=== PATIENT | male | born 1945 | race Caucasian/White ===

== ENCOUNTER 2021-07-09 03:33 | Inpatient (IN) ==
[2021-07-09 03:49] VITALS: BMI 25.0
[2021-07-09] MEDS ORDERED: CARDIZEM INJ 50 MG VIAL IVP ONE ×2 (04:03→04:48)
[2021-07-09] MEDS ORDERED: CARDIZEM INJ 50 MG VIAL ONE (04:05)
[2021-07-09 04:19] LABS: HEMOGLOBIN 11.8 g/dL (13.5-18.0); WHITE BLOOD COUNT 6.7 X10^3/uL (3.6-10.0)
--- NOTE | 2021-07-09 04:19 | DR.ARRHYTH ---
HPI Time Seen Time Seen by Provider: 07/09/21 04:15 PCP Primary Care Physician: Pool Complaint Chief Complaint Doctor Comments: 75 y/o male presents with palpitations x the past few weeks. Was diagnosed with atrial fibrillation, seen at other ERs [facility] times. Left [facility], they had give him IV lasix and placed on a drip. Pt was not satisfied with their care (lack of bathroom, amenities). Came here instead. Has been having intermittent chest pain - mostly dull, sharp at times, substernal region, does not radiate. Having palpitations more than chest pain, feels that heart is coming out of his back. + exertional dyspnea. Denies diaphoresis, N/V. + h/o heart disease, s/p CABD, vascular stents in the past, still smokes. Is on plavix. Chief Complaint:: Feels like his heart is racing x "a few weeks". He just walked out of [facility] without being released. COVID-19 Coronavirus risk:travel/contact w/high risk person: No Has patient experienced Coronavirus symptoms: No Reviewed Nursing Notes Reviewed: Yes Source History Provided: Patient Mode of Arrival Mode of Arrival: Ambulatory Timing Onset of Chief Complaint: 06/26/21 PMH PMH Past Medical History: Yes Past Medical History: Coronary Artery Disease, Dyslipidemia and Hypertension Past Medical History Comment: Hepatitis C Past Surgical History: Yes Surgical History: CABG/Valve Surgery Past Surgical History Comment: Pacemaker, Open heart x 2, Stents to legs Family History History of Family Medical Conditions: No Social History Does patient currently use any type of tobacco product: Yes Type of Tobacco Use: Cigarettes Packs per day or dips/chews per day: 1/2 PPD Alcohol Use: None Do you use any recreational Drugs:: No Lives With: Alone Lives Where: Home Travel Risk Coronavirus risk:travel/contact w/high risk person: No Has patient experienced Coronavirus symptoms: No Infectious screening Have you traveled outside the country in the last 6 months?: No Isolation: Standard ROS Review of Systems Constitutional: Weakness Eyes: No Symptoms Reported ENTM: No Symptoms Reported Respiratoy: No Symptoms Reported Cardiovascular: Chest Pain, Edema and Palpitations Gastrointestinal/Abdominal: No Symptoms Reported Genitourinary: No Symptoms Reported Neurological: No Symptoms Reported Musculoskeletal: No Symptoms Reported Integumentary: No Symptoms Reported Hematologic/Lymphatic: No Symptoms Reported Psychiatric: No Symptoms Reported All Other Systems: Reviewed and Negative PE Vitals Vital Signs: Temp Pulse Resp BP Pulse Ox 07/09/21 06:30 108 H 15 113/69 98 07/09/21 06:15 132 H 26 H 07/09/21 06:00 107 H 16 110/74 100 07/09/21 05:45 112 H 17 99/70 99 07/09/21 05:30 115 H 15 112/67 07/09/21 05:15 117 H 18 110/73 99 07/09/21 05:03 116 H 20 110/56 100 07/09/21 05:00 121 H 18 99 07/09/21 04:48 121 H 23 101/64 97 07/09/21 04:45 112 H 19 98 07/09/21 04:30 108 H 24 94 L 07/09/21 04:18 128 H 20 99/76 84 L 07/09/21 04:15 139 H 19 105/75 96 07/09/21 04:14 142 H 22 104/79 98 07/09/21 04:13 134 H 24 98 07/09/21 04:07 134 H 21 100/75 99 07/09/21 04:06 132 H 20 99 07/09/21 03:40 98.0 F 126 H 20 133/86 98 General Limitations: No Limitations General Appearance: Alert and In No Apparent Distress Head Head Exam: Normal Inspection Eyes Eyes: Normal ENT ENT Exam: Normal Exam and Mucous Membranes Moist Neck Neck Exam: Normal Inspection Chest Chest Inspection: Normal Inspection Respiratory Respiratory Exam: negative Accessory Muscle Use and Respiratory Distress Respiratory Exam: Bilateral: Rales Cardiovascular Cardiovascular Exam: Irregular Rhythm and Normal Heart Sounds Abdominal Exam Abdominal Exam: Normal Inspection, Normal Bowel Sounds and Soft; negative Tenderness Extremities Extremities Exam: Normal Inspection and Edema (2+ pitting edema) Back Back Exam: Normal Inspection Neurologic Neurological Exam: Alert, Oriented X3 and CN II-XII Intact; negative Motor Sensory Deficit Psychiatric Psychiatric Exam: Normal Affect Skin Skin Exam: Warm and Dry MDM Differential Diagnosis Atrial: Atrial Fibrillation (w/RVR) Differential Diagnosis Comment: CHF, OK COURSE Treatment Treatment: 75 y/o male with few weeks of palpitations, dx'd with AFib. Has Afib w/RVR, probable CHF. W/u initiated. Given IV cardizem, 10 mg IVP to start. Rate down into the low 100's, still with low BP. Will give IV fluids, and IV lasix, as well as additional cardizem. 0615 - remains stable. Rate in the low 100s. W/u unremarkable for acute OK, cardiac enzymes negative. CXR with cardiomegaly, mild effusion. Will start cardizem drip, recommend admission. Discussed with Dr Acosta, will admit to Dr Lanza. ROR Labs Reviewed Laboratory Results Reviewed?: Yes Result Diagrams: 07/09/21 04:10 07/09/21 04:10 Laboratory: WBC 6.7 X10^3/uL (3.6-10.0) 07/09/21 04:10 RBC 3.58 X10^6/uL (4.7-6.0) L 07/09/21 04:10 Hgb 11.8 g/dL (13.5-18.0) L 07/09/21 04:10 Hct 34.3 % (42.0-54.0) L 07/09/21 04:10 MCV 95.8 fL (80.0-100.0) 07/09/21 04:10 MCH 32.9 pg (27.0-34.0) 07/09/21 04:10 MCHC 34.4 g/dL (33.0-35.0) 07/09/21 04:10 RDW 15.2 % (11.6-16.5) 07/09/21 04:10 Plt Count 69 X10^3/uL (150.0-450.0) L 07/09/21 04:10 MPV 9.7 fL (7.4-11.0) 07/09/21 04:10 Neut % (Auto) 76.0 % (42.0-75.0) H 07/09/21 04:10 Lymph % (Auto) 12.3 % (21.0-51.0) L 07/09/21 04:10 [place] % (Auto) 9.6 % (0.0-13.0) 07/09/21 04:10 Eos % (Auto) 1.6 % (0.9-2.9) 07/09/21 04:10 Baso % (Auto) 0.5 % (0.2-1.0) 07/09/21 04:10 Neut # (Auto) 5.1 x10^3/uL (2.2-4.8) H 07/09/21 04:10 Lymph # (Auto) 0.8 X10^3/uL (1.3-2.9) L 07/09/21 04:10 [place] # (Auto) 0.6 x10^3/uL (0.3-0.8) 07/09/21 04:10 Eos # (Auto) 0.1 x10^3/uL (0.0-0.2) 07/09/21 04:10 Baso # (Auto) 0.0 X10^3/uL (0.0-0.1) 07/09/21 04:10 Absolute Nucleated RBC 0.1 /100WBC 07/09/21 04:10 PT 16.3 SECONDS (11.8-14.3) 07/09/21 04:10 INR Target Range - 07/09/21 04:10 INR 1.38 (0.8-1.3) H 07/09/21 04:10 APTT 33.4 SECONDS (22.9-36.5) 07/09/21 04:10 PTT Comment - 07/09/21 04:10 Sodium 140 mmol/L (136-145) 07/09/21 04:10 Corrected Sodium TNP 07/09/21 04:10 Potassium 3.7 mmol/L (3.5-5.1) 07/09/21 04:10 Chloride 104 mmol/L (98-107) 07/09/21 04:10 Carbon Dioxide 26.8 mmol/L (21-32) 07/09/21 04:10 BUN 39 mg/dL (7-18) H 07/09/21 04:10 Creatinine 1.39 mg/dL (0.70-1.30) H 07/09/21 04:10 Est GFR (MDRD) Af Amer > 60 (>60) 07/09/21 04:10 Est GFR (MDRD) Non-Af 53 (>60) L 07/09/21 04:10 Glucose 108 mg/dL (65-99) H 07/09/21 04:10 Calcium 8.8 mg/dL (8.5-10.1) 07/09/21 04:10 Corrected Calcium TNP 07/09/21 04:10 Total Bilirubin 1.20 mg/dL (0.2-1.0) H 07/09/21 04:10 AST 44 Units/L (15-37) H 07/09/21 04:10 ALT 54 Units/L (12-78) 07/09/21 04:10 Alkaline Phosphatase 62 Units/L (46-116) 07/09/21 04:10 Creatine Kinase 216 Units/L (39-308) 07/09/21 04:10 CK-MB (CK-2) 5.6 ng/mL (0-4.0) H* 07/09/21 04:10 CK/CKMB % Calc 2.6 % (<4) 07/09/21 04:10 Troponin I 0.11 ng/mL (0-1.5) 07/09/21 04:10 B-Natriuretic Peptide 484 pg/mL (0-79) H 07/09/21 04:10 Total Protein 6.9 g/dL (6.4-8.2) 07/09/21 04:10 Albumin 3.8 g/dL (3.4-5.0) 07/09/21 04:10 Globulin 3.1 g/dL (2.5-4.5) 07/09/21 04:10 Albumin/Globulin Ratio 1.2 Ratio (1.1-2.1) 07/09/21 04:10 SARS-CoV-2 (PCR) Negative (NEGATIVE) 07/09/21 05:05 Other Results Comments: BNP 484 XRAY XRAY Interpreted by: Self X-ray Results: Carediomegaly, COPD, degree of pulmonary vascular congestion, + bilateral small effusions ( R > L). EKG Rate: 123 [place]: Normal Rhythm: Afib (with RVR) Block: IVCD Hypertrophy: None ST: Nonsp Opioid Opioid Risk Tool Age (Asher box if 16-45): No History of Preadolescent Sexual Abuse: No Total: 0 Total Score Risk Category: Low Risk Copyright: Maldonado predicting aberrant behaviors Diagnosis Discharge Problem: Atrial fibrillation with rapid ventricular response
[2021-07-09 04:22] LABS: BASOPHILS % (AUTO) 0.5 % (0.2-1.0); EOSINOPHILS # (AUTO) 0.1 x10^3/uL (0.0-0.2); EOSINOPHILS % (AUTO) 1.6 % (0.9-2.9); HEMATOCRIT 34.3 % (42.0-54.0); LYMPHOCYTES # (AUTO) 0.8 X10^3/uL (1.3-2.9); LYMPHOCYTES % (AUTO) 12.3 % (21.0-51.0); MEAN CORPUSCULAR HEMOGLOBIN 32.9 pg (27.0-34.0); MEAN CORPUSCULAR HGB CONC 34.4 g/dL (33.0-35.0); MEAN CORPUSCULAR VOLUME 95.8 fL (80.0-100.0); MEAN PLATELET VOLUME 9.7 fL (7.4-11.0); MONOCYTES # (AUTO) 0.6 x10^3/uL (0.3-0.8); MONOCYTES % (AUTO) 9.6 % (0.0-13.0); NEUTROPHILS # (AUTO) 5.1 x10^3/uL (2.2-4.8); PLATELET COUNT 69 X10^3/uL (150.0-450.0); RED BLOOD COUNT 3.58 X10^6/uL (4.7-6.0); RED CELL DISTRIBUTION WIDTH 15.2 % (11.6-16.5)
[2021-07-09] MEDS ORDERED: LASIX ONE (04:55)
[2021-07-09] MEDS ORDERED: NS 1,000 ML IV 1,000 ML ONE (04:56)
[2021-07-09 05:00] LABS: ALANINE AMINOTRANSFERASE 54 Units/L (12-78); ALBUMIN 3.8 g/dL (3.4-5.0); ALKALINE PHOSPHATASE 62 Units/L (46-116); ASPARTATE AMINO TRANSFERASE 44 Units/L (15-37); BLOOD UREA NITROGEN 39 mg/dL (7-18); CALCIUM 8.8 mg/dL (8.5-10.1); CARBON DIOXIDE 26.8 mmol/L (21-32); CHLORIDE 104 mmol/L (98-107); CKMB % 2.6 % (<4); CREATINE KINASE 216 Units/L (39-308); CREATININE 1.39 mg/dL (0.70-1.30); SODIUM 140 mmol/L (136-145); TOTAL PROTEIN 6.9 g/dL (6.4-8.2); TROPONIN I 0.11 ng/mL (0-1.5); eGFR NON BLACK RACES 53 (>60)
[2021-07-09] MEDS ORDERED: NS 1,000 ML IV 1,000 ML IV SCH (05:00)
[2021-07-09 05:01] LABS: CREATINE KINASE MB 5.6 ng/mL (0-4.0)
[2021-07-09] MEDS: LASIX IVP ONE ×2 (05:12→05:14)
[2021-07-09] MEDS ORDERED: CARDIZEM INJ 125 MG VIAL 125 MG in NS 100 ML IV 100 ML IV PRN (06:19)
[2021-07-09] MEDS ORDERED: NS 100 ML IV + SPIKE MINIBAG* 100 ML IV ONE (06:27)
[2021-07-09] MEDS ORDERED: CARDIZEM INJ 125 MG VIAL ONE (06:28)
--- NOTE | 2021-07-09 09:13 | RAD ---
HISTORYChest painSTUDYAP [id number]/17/2019 report onlyFINDINGSThe heart is enlarged with pacing device and sternal wires. Pulmonary vessels are congested. Small pleural effusions deform the costophrenic angles. Interstitial distortion is noted in the lower lobes without evidence for consolidation. Vascular stent graft is noted in the left superior mediastinum.IMPRESSIONFindings described are concerning for interval development of CHF. Bibasal inflammatory process possible but considered less likely. Follow-up suggested.Electronically signed by: LEONCIO NIEVES (Jul 09, 2021 09:12:34)
[2021-07-09] MEDS ORDERED: LANOXIN or DIGITEK PO SCH ×2 (10:00→10:14)
[2021-07-09] MEDS ORDERED: PLAVIX PO SCH (10:14)
--- NOTE | 2021-07-09 11:11 | DR.H&P ---
H&P - History & Physical for Day of: H&P Date: 07/09/21 - Chief Complaint Chief Complaint: RAPID HEART RATE, SHORTNESS OF BREATH - History of Present Illness History of Present Illness: IS A 75 YEAR OLD PATIENT OF OURS. HE PRESENTED TO THE ER WITH COMPLAINTS OF PALPITATIONS FOR THE PAST FEW WEEKS. PATIENT REPORTS THAT HE WAS RECENTLY DIAGNOSED WITH ATRIAL FIBRILLATION AND CONGESTIVE HEART FAILURE. HE WAS ADMITTED TO [facility] IN [place], [place] LAST NIGHT, BUT LEFT AMA DUE TO BEING UNSATISFIED WITH THE CARE. ON ARRIVAL TO OUR ER, HE ALSO ADMITTED TO CHEST PAIN. PAIN IS DESCRIBED DULL, SHARP AT TIMES, SUBSTERNAL REGION, AND DOES NOT RADIATE. PAIN WAS RATED A 4/10. PATIENT ADMITS TO EXERTIONAL DYSPNEA. HE DENIES DIAPHORESIS, N/V. HIS PMH INCLUDES: CAD, DYSLIPIDEMIA, HTN, HEPATITIS C, CABG, PACEMAKER, OPEN HEART SURGERY X 2, VASCULAR STENTS. HE ADMITS TO SPOKING PPD OF CIGARETTES. ON EXAMINATION, PATIENT HAS 2+ PITTING EDEMA TO LOWER EXTREMITIES. HEART RATE IS RAPID AND IRREGULAR. ON ARRIVAL, VITALS WERE 98.0-126-20-98%-133/86. LABS WERE OBTAINED. ABNORMAL LAB VALUES INCLUDE THE FOLLOWING: RBC 3.58, HGB 11.8, HCT 34.3, PLT COUNT 69, INR 1.38, BUN 39, CREATININE 1.39, GLUCOSE 108, TOTAL BILI 1.20, AST 44, CK-MB 5.6, BNP 484. COVID-19 NEGATIVE. A CHEST XRAY WAS OBTAINED AND REVEALED: Findings described are concerning for interval development of CHF. Bibasal inflammatory process possible but considered less likely. EKG REVEALED: ATRIAL FIBRILLATION WITH HR 123. IN THE ER, HE WAS GIVEN LASIX 20MG IV X 1 AND CARDIZEM 10MG IV X 1. A CARDIZEM DRIP WAS STARTED, HOWEVER, DUE TO DECREASED BLOOD PRESSURE AND CONTROLLED PULSE, DRIP WAS DISCONTINUED AND PATIENT WAS GIVEN DIGOXIN 0.125MG PO X 1 DOSE. HE WAS ADMITTED TO THE HOSPITAL FOR FURTHER EVALUATION AND TREAMTENT OF A-FIB WITH RVR, CHF. HE WAS STARTED ON NORMAL SALINE AT 75 ML/HR, DIGOXIN 0.125MG PO DAILY, XOPENEX NEB TX TID, LASIX 20MG IV Q12H X 1 ADDITIONAL DOSE AT 1700. OTHERWISE, WE PLAN TO FOLLOW UP WITH AM LABS AND CONTINUE TO MONITOR. TIME SPENT ON CLINICAL ASSESSMENT, REVIEWING LABS AND IMAGING, DECISION MAKING, AND DOCUMENTATION GREATER THAN 75 MINUTES. - Past Medical History Past Medical History: Coronary Artery Disease, Hypertension, Dyslipidemia Additional Medical History: HEPATITS C - Past Surgical History Surgical History: Angioplasty/Stents, CABG/Valve Surgery Additional Surgical History: PACEMAKER, - Social History Does patient currently use any type of tobacco product: Yes Have you used tobacco products in the last 12 months: Yes Type of Tobacco Use: Cigarettes Alcohol Use: None - Medications Home Medications: No Known Drug Allergies Allergy (Verified 07/09/21 03:49) CONTINUE taking the following medications clopidogrel [Plavix] 75 mg PO DAILY 07/09/21 [History] - Review of Systems Constitutional: Weakness Eyes: No Symptoms Reported ENT: No Symptoms Reported Respiratory: See HPI, Shortness of Breath, SOB with Excertion Cardiovascular: Chest Pain, Palpitations, Edema (BLE 2+ PITTING EDEMA ) Gastrointestinal: No Symptoms Reported Genitourinary: No Symptoms Reported Musculoskeletal: No Symptoms Reported Skin: No Symptoms Reported Neurological: Weakness - Physical Exam Vital Signs: Temperature 98.0 F Pulse Rate 113 Respiratory Rate 18 Blood Pressure 104/69 O2 Sat by Pulse Oximetry 98 Oriented: Normal Eyes: Normal Ear: Normal Nose: Normal Throat: Normal Respiratory: Diminished Throughout Cardiovascular: Tachycardia, Irregular : Normal Auscultation: Bowel Sounds: Normal Palpation: Normal Tenderness: Normal Skin: Normal Musculoskeletal: Normal Psychiatric: Normal Mood Description: Calm Affect: Normal Speech Pattern: Clear - Assessment/Plan (1) Atrial fibrillation with rapid ventricular response Status: Acute Plan: ADMIT, NORMAL SALINE AT 75 ML/HR, DIGOXIN 0.125MG PO DAILY, LASIX IV, TELEMETRY (2) CHF (congestive heart failure) Qualifiers: Heart failure type: unspecified Heart failure chronicity: acute Qualified Code(s): I50.9 - Heart failure, unspecified Status: Acute - Allergies Allergies/Adverse Reactions: Allergies Allergy/AdvReac Type Severity Reaction Status Date / Time No Known Drug Allergies Allergy Verified 07/09/21 03:49
[2021-07-09 12:11] VITALS: BP 129/59
[2021-07-09] MEDS ORDERED: XOPENEX 1.25 MG/3 ML NEBULE NEB SCH (14:00)
[2021-07-09] MEDS ORDERED: LASIX IVP ONE (17:00)
[2021-07-10] MEDS ORDERED: LANOXIN or DIGITEK PO SCH (09:00)
== END 2021-07-09 11:52 | disposition left against medical advice (07) | DRG 310 ==
LOC: ER 03:36 → U 08:42 → OBS 09:40
PROVIDERS: ADMIT Internal Medicine; ATTEND Internal Medicine
DX: E78.2 Mixed hyperlipidemia; I50.9 Heart failure, unspecified; R94.31 Abnormal electrocardiogram [ECG] [EKG]; Z53.29 Procedure and treatment not carried out because of patient's decision for other reasons; Z20.822 Contact with and (suspected) exposure to COVID-19; R07.89 Other chest pain; R06.02 Shortness of breath; I25.10 Atherosclerotic heart disease of native coronary artery without angina pectoris; I48.91 Unspecified atrial fibrillation; Z79.01 Long term (current) use of anticoagulants; I11.0 Hypertensive heart disease with heart failure

== ENCOUNTER 2021-08-29 09:25 | Observation (INO) ==
--- NOTE | 2021-08-29 09:45 | DR.GENAD ---
HPI Time Seen Time Seen by Provider: 08/29/21 09:44 Complaint/Symptoms Chief Complaint Doctors Comments: 75 y/o male presents for evaluation. C/o swelling of his legs. Has been going on few a few months. Pt overall a poor historian. Sees Dr Lanza, but hasn't talked about his swelling. Has a slight c ough, is a smoker. Gets dyspnea at times, worse with exertion. Denies pain. COVID-19 Coronavirus risk:travel/contact w/high risk person: No Has patient experienced Coronavirus symptoms: No Nurses notes reviewed Nurses Notes Review: Yes Source History Provided: Patient Mode of Arrival Mode of Arrival: Ambulatory Timing Came on: Gradually Duration Duration: Constant Location Location: bilateral lower legs/feet Severity Severity: Moderate Modifying Factors Worsens:: nothing Improves:: nothing PMH PMH Past Medical History: Coronary Artery Disease, Dyslipidemia and Hypertension Past Surgical History: Yes Surgical History: Angioplasty/Stents and CABG/Valve Surgery Social History Do you use any recreational Drugs:: No ROS Review of Systems Constitutional: No Symptoms Reported Eyes: No Symptoms Reported ENTM: No Symptoms Reported Respiratoy: Dry Cough and Short of Breath Cardiovascular: Edema Gastrointestinal/Abdominal: No Symptoms Reported Genitourinary: No Symptoms Reported Neurological: No Symptoms Reported Musculoskeletal: No Symptoms Reported Integumentary: No Symptoms Reported Hematologic/Lymphatic: No Symptoms Reported Endocrine: No Symptoms Reported All Other Systems: Reviewed and Negative PE Vital Signs Vitals: Temperature 96.7 F Pulse Rate 60 Respiratory Rate 18 Blood Pressure 97/52 O2 Sat by Pulse Oximetry 95 General Limitations: No Limitations General Appearance: Alert and In No Apparent Distress Head Head Exam: Normal Inspection Eyes Eye exam: Normal Appearance, PERRL and EOMI ENT ENT Exam: Normal Exam and Mucous Membranes Moist Neck Neck Exam: Normal Inspection, Full ROM and Other (No JVD) Chest Chest Inspection: Normal Inspection Respiratory Respiratory Exam: Normal Lung Sounds Bilat; negative Accessory Muscle Use and Respiratory Distress Respiratory Exam: Bilateral: Clear to Auscultation Cardiovascular Cardiovascular Exam: Regular Rate, Normal Rhythm and Normal Heart Sounds Abdominal Exam Abdominal Exam: Normal Inspection, Normal Bowel Sounds and Soft; negative Tenderness Extremities Extremities Exam: Edema (2+, of bilateral feet/lower exts) Back Back Exam: Normal Inspection Neurologic Neurological Exam: Alert, Oriented X3 and CN II-XII Intact; negative Motor Sensory Deficit Psychiatric Psychiatric Exam: Normal Affect Skin Skin Exam: Warm and Dry MDM Differential Diagnosis Differential Diagnosis: CHF, peripheral edema, chronic kidney disease COURSE Treatment Treatment: 75 y/o male, with chronic bilateral ankle swelling, recently worsening. Having exertional dyspnea. W/u initiated. CXR c/w CHF. Labs show low potassium at 3, elevated BNP of 1,100. Given IV lasix, put on O2. Discussed with his attending, Dr Lanza, will admit for CHF. Pt given oral and IV potassium here. ROR Labs Reviewed Laboratory Results Reviewed?: Yes Result Diagrams: 08/29/21 09:55 08/29/21 09:55 Laboratory: WBC 8.2 X10^3/uL (3.6-10.0) 08/29/21 09:55 RBC 3.17 X10^6/uL (4.7-6.0) L 08/29/21 09:55 Hgb 9.9 g/dL (13.5-18.0) L 08/29/21 09:55 Hct 29.6 % (42.0-54.0) L 08/29/21 09:55 MCV 93.5 fL (80.0-100.0) 08/29/21 09:55 MCH 31.2 pg (27.0-34.0) 08/29/21 09:55 MCHC 33.3 g/dL (33.0-35.0) 08/29/21 09:55 RDW 17.3 % (11.6-16.5) H 08/29/21 09:55 Plt Count 178 X10^3/uL (150.0-450.0) 08/29/21 09:55 MPV 8.1 fL (7.4-11.0) 08/29/21 09:55 Neut % (Auto) 77.1 % (42.0-75.0) H 08/29/21 09:55 Lymph % (Auto) 12.3 % (21.0-51.0) L 08/29/21 09:55 [place] % (Auto) 8.8 % (0.0-13.0) 08/29/21 09:55 Eos % (Auto) 1.3 % (0.9-2.9) 08/29/21 09:55 Baso % (Auto) 0.5 % (0.2-1.0) 08/29/21 09:55 Neut # (Auto) 6.3 x10^3/uL (2.2-4.8) H 08/29/21 09:55 Lymph # (Auto) 1.0 X10^3/uL (1.3-2.9) L 08/29/21 09:55 [place] # (Auto) 0.7 x10^3/uL (0.3-0.8) 08/29/21 09:55 Eos # (Auto) 0.1 x10^3/uL (0.0-0.2) 08/29/21 09:55 Baso # (Auto) 0.0 X10^3/uL (0.0-0.1) 08/29/21 09:55 Absolute Nucleated RBC 0.1 /100WBC 08/29/21 09:55 Sodium 142 mmol/L (136-145) 08/29/21 09:55 Corrected Sodium TNP 08/29/21 09:55 Potassium 3.0 mmol/L (3.5-5.1) L* 08/29/21 09:55 Chloride 101 mmol/L (98-107) 08/29/21 09:55 Carbon Dioxide 33.9 mmol/L (21-32) H 08/29/21 09:55 BUN 28 mg/dL (7-18) H 08/29/21 09:55 Creatinine 1.09 mg/dL (0.70-1.30) 08/29/21 09:55 Est GFR (MDRD) Af Amer > 60 (>60) 08/29/21 09:55 Est GFR (MDRD) Non-Af > 60 (>60) 08/29/21 09:55 Glucose 103 mg/dL (65-99) H 08/29/21 09:55 Calcium 8.7 mg/dL (8.5-10.1) 08/29/21 09:55 Corrected Calcium TNP 08/29/21 09:55 Total Bilirubin 0.50 mg/dL (0.2-1.0) 08/29/21 09:55 AST 34 Units/L (15-37) 08/29/21 09:55 ALT 32 Units/L (12-78) 08/29/21 09:55 Alkaline Phosphatase 79 Units/L (46-116) 08/29/21 09:55 Creatine Kinase 74 Units/L (39-308) 08/29/21 09:55 CK-MB (CK-2) 1.6 ng/mL (0-4.0) 08/29/21 09:55 CK/CKMB % Calc 2.2 % (<4) 08/29/21 09:55 Troponin I High Sens 30.4 ng/L (4.0-60.0) 08/29/21 09:55 B-Natriuretic Peptide 1100 pg/mL (0-79) H* 08/29/21 09:55 Total Protein 7.4 g/dL (6.4-8.2) 08/29/21 09:55 Albumin 3.4 g/dL (3.4-5.0) 08/29/21 09:55 Globulin 4.0 g/dL (2.5-4.5) 08/29/21 09:55 Albumin/Globulin Ratio 0.9 Ratio (1.1-2.1) L 08/29/21 09:55 Lipase 103 Units/L (73-393) 08/29/21 09:55 Specimen Type Clean catch urine 08/29/21 13:18 Urine Color Yellow (YELLOW) 08/29/21 13:18 Urine Appearance Slightly hazy (CLEAR) 08/29/21 13:18 Urine pH 7.0 (5.0 - 8.0) 08/29/21 13:18 Ur Specific [place] 1.010 (1.000-1.030) 08/29/21 13:18 Urine Protein 1+ (NEGATIVE) 08/29/21 13:18 Urine Glucose (UA) Negative (NEGATIVE) 08/29/21 13:18 Urine Ketones Negative (NEGATIVE) 08/29/21 13:18 Urine Occult Blood 1+ (NEGATIVE) 08/29/21 13:18 Urine Nitrite Negative (NEGATIVE) 08/29/21 13:18 Urine Bilirubin Negative (NEGATIVE) 08/29/21 13:18 Urine Urobilinogen Normal (NORMAL) 08/29/21 13:18 Ur Leukocyte Esterase 1+ (NEGATIVE) 08/29/21 13:18 Urine RBC 3-5 /HPF (0-3) A 08/29/21 13:18 Urine WBC 5-10 /HPF (0-5) A 08/29/21 13:18 Ur Squamous Epith Cells Few /HPF (NEGATIVE) 08/29/21 13:18 Urine Bacteria 1+ /HPF (NEGATIVE) 08/29/21 13:18 Ur Culture Indicated? No/not indicated 08/29/21 13:18 SARS-CoV-2 (PCR) Negative (NEGATIVE) 08/29/21 12:08 Influenza Type A (PCR) Negative (NEGATIVE) 08/29/21 12:08 Influenza Type B (PCR) Negative (NEGATIVE) 08/29/21 12:08 RSV (PCR) Negative (NEGATIVE) 08/29/21 12:08 Other Results Comments: Mild anemia, low potassium, elevated BNP XRAY XRAY Interpreted by: Both X-ray Results: + changes c/w CHF, bilateral effusions R > L. EKG Rate: 63 [place]: Normal Rhythm: NSR Block: IVCD Hypertrophy: LVH ST: Nonsp Opioid Opioid Risk Tool Age (Asher box if 16-45): No History of Preadolescent Sexual Abuse: No Total: 0 Total Score Risk Category: Low Risk Copyright: Joel DE OLIVEIRA predicting aberrant behaviors Diagnosis Discharge Problem: CHF (congestive heart failure) Qualifiers: Heart failure type: unspecified Heart failure chronicity: unspecified Qualified Code(s): I50.9 - Heart failure, unspecified
[2021-08-29 10:00] LABS: BASOPHILS % (AUTO) 0.5 % (0.2-1.0); EOSINOPHILS # (AUTO) 0.1 x10^3/uL (0.0-0.2); EOSINOPHILS % (AUTO) 1.3 % (0.9-2.9); HEMATOCRIT 29.6 % (42.0-54.0); HEMOGLOBIN 9.9 g/dL (13.5-18.0); LYMPHOCYTES % (AUTO) 12.3 % (21.0-51.0); MEAN CORPUSCULAR HEMOGLOBIN 31.2 pg (27.0-34.0); MEAN CORPUSCULAR HGB CONC 33.3 g/dL (33.0-35.0); MEAN CORPUSCULAR VOLUME 93.5 fL (80.0-100.0); MEAN PLATELET VOLUME 8.1 fL (7.4-11.0); MONOCYTES # (AUTO) 0.7 x10^3/uL (0.3-0.8); MONOCYTES % (AUTO) 8.8 % (0.0-13.0); NEUTROPHILS # (AUTO) 6.3 x10^3/uL (2.2-4.8); NEUTROPHILS % (AUTO) 77.1 % (42.0-75.0); RED BLOOD COUNT 3.17 X10^6/uL (4.7-6.0); RED CELL DISTRIBUTION WIDTH 17.3 % (11.6-16.5); WHITE BLOOD COUNT 8.2 X10^3/uL (3.6-10.0)
[2021-08-29 10:21] LABS: ALANINE AMINOTRANSFERASE 32 Units/L (12-78); ALBUMIN 3.4 g/dL (3.4-5.0); ALKALINE PHOSPHATASE 79 Units/L (46-116); ASPARTATE AMINO TRANSFERASE 34 Units/L (15-37); BLOOD UREA NITROGEN 28 mg/dL (7-18); CALCIUM 8.7 mg/dL (8.5-10.1); CARBON DIOXIDE 33.9 mmol/L (21-32); CHLORIDE 101 mmol/L (98-107); CKMB % 2.2 % (<4); CREATINE KINASE 74 Units/L (39-308); CREATINE KINASE MB 1.6 ng/mL (0-4.0); CREATININE 1.09 mg/dL (0.70-1.30); LIPASE 103 Units/L (73-393); SODIUM 142 mmol/L (136-145); TOTAL PROTEIN 7.4 g/dL (6.4-8.2); eGFR NON BLACK RACES > 60 (>60)
[2021-08-29] MEDS ORDERED: K-RIDER 10 MEQ/NS 100 ML 10 MEQ/100 ML BAG IV ONE ×2 (11:42→11:53)
[2021-08-29] MEDS ORDERED: LASIX IVP ONE ×2 (11:42→11:53)
[2021-08-29] MEDS ORDERED: K-DUR TAB 20 MEQ PO ONE ×2 (11:43→11:53)
[2021-08-29] MEDS ORDERED: NS 250 ML IV 250 ML IV ONE (12:12)
[2021-08-29 13:24] LABS: BILIRUBIN,URINE NEGATIVE (NEGATIVE); BLOOD/HEMOGLOBIN,URINE 1+ (NEGATIVE); GLUCOSE, URINE NEGATIVE (NEGATIVE); KETONES,URINE NEGATIVE (NEGATIVE); LEUKOCYTE ESTERASE ,URINE 1+ (NEGATIVE); NITRITES,URINE NEGATIVE (NEGATIVE); PROTEIN,URINE 1+ (NEGATIVE); UROBILINOGEN,URINE NORMAL (NORMAL)
[2021-08-29 13:27] LABS: APPEARANCE,URINE SLIGHTLY HAZY (CLEAR); COLOR,URINE YELLOW (YELLOW)
[2021-08-29 13:28] LABS: BACTERIA,URINE 1+ /HPF (NEGATIVE); SQUAMOUS EPITHELIAL CELL,UR FEW /HPF (NEGATIVE)
[2021-08-29] MEDS ORDERED: LASIX IVP SCH (17:00)
[2021-08-29] MEDS ORDERED: K-DUR TAB 20 MEQ PO SCH (21:00)
[2021-08-29 23:03] VITALS: BMI 22.6
[2021-08-30 04:33] VITALS: BP 110/65
--- NOTE | 2021-08-30 06:16 | RAD ---
HISTORYSOBSTUDYCHEST, 1 VIEWCOMPARISONOne day prior.TECHNIQUEAP view of the chestFINDINGSLeft chest wall pacemaker in situ. The cardiac silhouette is stably enlarged. Mediastinal contours appear stable. Similar appearing bilateral airspace and interstitial opacities. Similar appearing small pleural effusions. No pneumothorax.IMPRESSIONNo significant change.Electronically signed by: Reji Clayton (Aug 30, 2021 06:15:06)
[2021-08-30 06:21] LABS: BASOPHILS % (AUTO) 0.7 % (0.2-1.0); EOSINOPHILS # (AUTO) 0.1 x10^3/uL (0.0-0.2); HEMATOCRIT 27.2 % (42.0-54.0); HEMOGLOBIN 9.1 g/dL (13.5-18.0); LYMPHOCYTES # (AUTO) 0.6 X10^3/uL (1.3-2.9); LYMPHOCYTES % (AUTO) 9.4 % (21.0-51.0); MEAN CORPUSCULAR HEMOGLOBIN 30.9 pg (27.0-34.0); MEAN CORPUSCULAR HGB CONC 33.4 g/dL (33.0-35.0); MEAN CORPUSCULAR VOLUME 92.7 fL (80.0-100.0); MEAN PLATELET VOLUME 8.2 fL (7.4-11.0); MONOCYTES # (AUTO) 0.7 x10^3/uL (0.3-0.8); NEUTROPHILS # (AUTO) 5.3 x10^3/uL (2.2-4.8); NEUTROPHILS % (AUTO) 78.9 % (42.0-75.0); RED BLOOD COUNT 2.93 X10^6/uL (4.7-6.0); RED CELL DISTRIBUTION WIDTH 16.9 % (11.6-16.5); WHITE BLOOD COUNT 6.7 X10^3/uL (3.6-10.0)
[2021-08-30 06:42] LABS: ABG ALLEN TEST POS
[2021-08-30 07:07] LABS: ALANINE AMINOTRANSFERASE 24 Units/L (12-78); ALBUMIN 3.1 g/dL (3.4-5.0); ALKALINE PHOSPHATASE 71 Units/L (46-116); ASPARTATE AMINO TRANSFERASE 32 Units/L (15-37); BLOOD UREA NITROGEN 27 mg/dL (7-18); CALCIUM 8.5 mg/dL (8.5-10.1); CARBON DIOXIDE 32.3 mmol/L (21-32); CHLORIDE 100 mmol/L (98-107); COR CA(FOR HYPOALB) 9.2 mg/dL (8.5-10.1); COR NA(FOR HYPERGLY) 140 mmol/L (136-145); CREATININE 1.03 mg/dL (0.70-1.30); SODIUM 139 mmol/L (136-145); TOTAL PROTEIN 6.6 g/dL (6.4-8.2); eGFR NON BLACK RACES > 60 (>60)
--- NOTE | 2021-08-30 10:58 | RAD ---
HISTORYLE EDEMA, SOB Relevant Clinical InformationSTUDYCHEST, 1 [id number]/14/2021.FINDINGSThe heart size is enlarged but stable. Pacemaker and EKG leads are present. Pulmonary blood flow is congested. There are small bilateral pleural effusions. There is increased interstitial prominence suggestive of edema and there is bibasilar stranding suggestive of atelectasis..IMPRESSIONFindings suggestive of congestive heart failure with fluid overload. Coexisting infection is not excluded.Electronically signed by: Dennis Garcias (Aug 29, 2021 10:13:16)
--- NOTE | 2021-11-26 10:46 | DR.CARTERS ---
Short Stay Summary - Admission Date Date of Admission: 08/29/21 - Discharge Date Discharge Date: 08/30/21 - Admission Diagnoses (1) Hypokalemia Status: Acute (2) CHF (congestive heart failure) Status: Acute - Hospital Course Hospital Course: IS A 75 YEAR OLD MALE WHO PRESENTED TO THE ER WITH COMPLAINTS OF LOWER EXTREMITY SWELLING. HE HAS A PMH OF CHF, CAD, DYSLIPIDEMIA, HTN, CARDIAC STENTS, AND CABG. HE IS CURRENTLY UNDER [facility]. PATIENT REPORTS LOWER EXTREMITY SWELLING X 2 MONTHS. HE ALSO REPORTED SHORTNESS OF BREATH WHICH IS WORSE ON EXERTION. HE DENIED PAIN. EXAMINATION REVEALED 2+ PITTING EDEMA. ON ARRIVAL, VITALS WERE 96.7-60-22-98%RA-97/52. LABS WERE OBTAINED. ABNORMAL LAB VALUES INCLUDED THE FOLLOWING: RBC 3.17, HGB 9.9, HCT 29.6, POTASSIUM 3.0, CARBON DIOXIDE 33.9, BUN 28, GLUCOSE 103, BNP 1100. CARDIAC ENZYMES WERE WITHIN NORMAL LIMITS. URINALYSIS WAS OBTAINED AND REVEALED: WBC 5-10, RBC 3-5, LEUKOCYTES 1+, BACTERIA 1+. COVID, INFLUENZA, AND RSV NEGATIVE. A CHEST XRAY WAS OBTAINED AND REVEALED: Findings suggestive of congestive heart failure with fluid overload. Coexisting infection is not excluded. EKG REVEALED: SINUS RHYTHM WITH HR 63. IN THE ER, HE WAS GIVEN POTASSIUM CHLORIDE 10MG IV X 1, LASIX 40MG IV X 1. HE WAS ADMITTED TO THE HOSPITAL FOR FURTHER EVALUATION AND TREATMENT OF CHR, HYPOKALEMIA. HE WAS STARTED ON K-DUR 20MEQ BID, LASIX 40MG IV BID. WE PLANNED TO RESUME HOME MEDICATIONS WHEN THEY WERE VREIFIED AND CONTINUE TO MONITOR SERIAL CARDIAC ENZYMES AND EKGS. PATIENT APPARENTLY SIGNIED OUT AM AT 15:30 TO TURN HIS HEATER OFF AND FEED HIS DOGS, BUT RETURNED SHORTLY AFTER. ON THE MORNING FOLLOWING ADMISSION, PATIENT SIGNED OUT AMA PRIOR TO BEING EXAMINED. TIME SPENT ON CLINICAL ASSESSMENT, REVIEWING LABS AND IMAGING, DECISION MAKING, AND DOCUMENTATION GREATER THAN 75 MINUTES. - Discharge Medications Discharge Medications: Home Medication List amiodarone 200 mg PO DAILY 08/29/21 [History] apixaban [Eliquis] 2.5 mg PO BID 08/29/21 [History] metoprolol tartrate 12.5 mg PO BID 08/29/21 [History] Prescriptions: - Discharge Plan Disposition: HOME, SELF-CARE Condition: Stable - Follow up/Referrals Follow up/Referrals: Pato Lanza [Primary Care Provider] - 1 WEEK - Instructions
== END 2021-08-30 07:50 | disposition home or self-care (01) ==
LOC: ER 09:25 → MED/SURG 09:25
PROVIDERS: ADMIT Internal Medicine; ATTEND Internal Medicine

== ENCOUNTER 2021-11-01 10:54 | Inpatient (IN) ==
[2021-11-01 13:23] LABS: BASOPHILS % (AUTO) 0.4 % (0.2-1.0); EOSINOPHILS # (AUTO) 0.1 x10^3/uL (0.0-0.2); EOSINOPHILS % (AUTO) 0.4 % (0.9-2.9); HEMATOCRIT 35.2 % (42.0-54.0); HEMOGLOBIN 11.6 g/dL (13.5-18.0); LYMPHOCYTES % (AUTO) 7.6 % (21.0-51.0); MEAN CORPUSCULAR HEMOGLOBIN 28.4 pg (27.0-34.0); MEAN CORPUSCULAR HGB CONC 33.1 g/dL (33.0-35.0); MEAN CORPUSCULAR VOLUME 85.8 fL (80.0-100.0); MEAN PLATELET VOLUME 8.1 fL (7.4-11.0); MONOCYTES # (AUTO) 0.9 x10^3/uL (0.3-0.8); MONOCYTES % (AUTO) 6.3 % (0.0-13.0); NEUTROPHILS # (AUTO) 11.6 x10^3/uL (2.2-4.8); NEUTROPHILS % (AUTO) 85.3 % (42.0-75.0); RED CELL DISTRIBUTION WIDTH 18.7 % (11.6-16.5); WHITE BLOOD COUNT 13.6 X10^3/uL (3.6-10.0)
[2021-11-01 13:33] LABS: ALANINE AMINOTRANSFERASE 46 Units/L (12-78); ALBUMIN 3.3 g/dL (3.4-5.0); ALKALINE PHOSPHATASE 85 Units/L (46-116); ASPARTATE AMINO TRANSFERASE 128 Units/L (15-37); BLOOD UREA NITROGEN 16 mg/dL (7-18); CALCIUM 8.7 mg/dL (8.5-10.1); CARBON DIOXIDE 28.9 mmol/L (21-32); CHLORIDE 101 mmol/L (98-107); COR CA(FOR HYPOALB) 9.3 mg/dL (8.5-10.1); COR NA(FOR HYPERGLY) 139 mmol/L (136-145); CREATININE 1.08 mg/dL (0.70-1.30); MAGNESIUM 2.3 mg/dL (1.7-2.9); SODIUM 138 mmol/L (136-145); eGFR NON BLACK RACES > 60 (>60)
[2021-11-01 13:43] LABS: ERYTHROCYTE SEDIMENTATION RATE 42 MM/HOUR (0-15)
[2021-11-01 13:46] LABS: LACTIC ACID 1.5 mmol/L (0.4-2.0)
[2021-11-01] MEDS: NS 1,000 ML IV 1,000 ML IV SCH (15:00)
[2021-11-01] MEDS: ZOSYN VIAL 3.375 GRAMS 3.375 G in NS 100 ML IV 100 ML IV SCH ×3 (15:00→21:50)
--- NOTE | 2021-11-01 16:20 | RAD ---
HISTORYcellulite right lower leg, pain in bilat legs htn, pacemakerSTUDYCHEST, PA/LAT ADULTCOMPARISONAP chest July 09, 2021FINDINGSThe trachea is midline. The cardiac silhouette is mildly enlarged. Pacemaker is in place in there are sternotomy wires from prior probable CABG surgery. Small pleural effusions blunt the posterior and right costophrenic angle. Minimal fluid is seen along the minor fissure on the right.. The lungs are clear without focal infiltrate or effusion. The bony thorax is unremarkable.IMPRESSIONPostsurgical chest status post sternotomy CABG surgery pacemaker in place with cardiomegaly small pleural effusions in the right mild central vascular congestion but no overt findings of CHF.Pleural effusions and vascular congestion are improved when compared to July 09, 2021.Electronically signed by: PADDY SILVERMAN (Nov 01, 2021 16:19:55)
--- NOTE | 2021-11-01 16:48 | CT ---
HISTORYcellulite right lower leg, pain in bilat legsSTUDYLOW EXT CTA W W/O CONCOMPARISONNoneTECHNIQUEAngiogram protocol of the pelvis and bilateral legs was performed after the administration of intravenous contrast. 3D MIPS images were performed. CT scan was performed following ALARA (As low as Reasonably Achievable).Coronal and Sagittal reformatted images were performed.FINDINGSThe partially included liver spleen and pancreas demonstrate no focal lesions,no gallstones,the stomach is no distended. No adrenal masses. There are bilateral normal-sized kidneys without hydronephrosis,no abnormal dilated small bowel loops. There is a right large inguinal scrotal hernia containing small bowel loops without obstruction. There is no evidence of appendicitis. No significant colitis. No free air or free fluid. The urinary bladder is mildly distended,no pelvic adenopathy.Angiogram there is severe atherosclerotic changes of the abdominal aorta,there is 60 percent narrowing of the mid to distal aspect of the celiac trunk. There is 50 percent narrowing at the origin of the superior mesenteric artery. There is single bilateral renal arteries with heavy calcification at the origin suspected high-grade stenosis bilaterally.There is surrounding thrombus in the infrarenal aorta. There is a graft at the bifurcation with enhancement in the left. The right common iliac artery graft is occluded without evidence of enhancement.There is heavy calcification of the common femoral artery area without evidence of enhancement in the right and severe disease along the right femoral superficial femoral artery to the popliteal region. The delayed images demonstrate minimal enhancement along the inferior popliteal artery and in the tibioperoneal trunk, no enhancement of the calf region and the foot is seen in the right.In the left, there is some enhancement of the left common femoral artery, there is severe calcification of the left superficial femoral artery with enhancement of the profunda, there is enhancement of the distal left superficial femoral artery and the popliteal artery there is 50 percent stenosis at the tibioperoneal trunk, there is a small anterior tibialis artery, there are enhancing 3 vessels the proximal calf semi however the anterior tibialis artery is small and there is a predominantly single posterior tibialis artery. In the delayed images there is more enhancement of the peroneal and the anterior tibialis artery however however no significant enhancement of the dorsal pedis artery is seen. There is enhancement of small plantar branch in the left.IMPRESSIONSevere atherosclerotic changes of the abdominal aorta with a graft at the aortic bifurcation with occlusion of the common iliac graft without evidence of enhancement of the right superficial femoral artery with a tiny reconstituted popliteal artery without evidence of significant enhancement in the calf and the right foot.In the left, there is patency of the left common iliac graft with severe disease of the superficial femoral artery and reconstitution of the popliteal artery with a tibioperoneal trunk with 3 vessels in the delayed images and single vessel in the plantar region in the delayed images.Electronically signed by: Mable Swift (Nov 01, 2021 16:47:27)
[2021-11-01 17:09] VITALS: BMI 21.7
[2021-11-01] MEDS ORDERED: NITROSTAT SL PRN (17:29)
[2021-11-01] MEDS: NORCO 5/325 MG TAB PO PRN ×2 (18:02→21:50)
[2021-11-01] MEDS: FLOMAX PO SCH (21:49)
[2021-11-01] MEDS: ELIQUIS PO SCH (21:49)
[2021-11-01] MEDS: FLONASE NASAL SPRAY ENOSTRIL SCH (21:49)
[2021-11-01] MEDS: LIPITOR TAB 80 MG PO SCH (21:49)
[2021-11-01] MEDS: COLACE CAP 100 MG PO SCH (21:49)
[2021-11-01] MEDS: LOPRESSOR TAB 25 MG PO SCH (21:50)
[2021-11-01] MEDS: MILK OF MAGNESIA PO SCH (21:50)
[2021-11-01] MEDS ORDERED: DUONEB 0.5 MG/3 MG (3 mL) NEB SCH (22:00)
[2021-11-01] MEDS ORDERED: POTASSIUM CHLORIDE LIQ 20 MEQ UDC PO PRN (22:32)
[2021-11-01] MEDS ORDERED: POTASSIUM CHL 60 MEQ/NS 0.45% 500 ML IV PRN (22:32)
[2021-11-01] MEDS ORDERED: POTASSIUM CHL 40 MEQ/NS 0.45% 500 ML IV PRN (22:32)
[2021-11-01] MEDS ORDERED: K-DUR TAB 20 MEQ PO PRN (22:32)
[2021-11-01] MEDS ORDERED: K-RIDER 10 MEQ/NS 100 ML 10 MEQ/100 ML BAG IV PRN (22:32)
[2021-11-01] MEDS ORDERED: MICRO K EXTEN CAP 10 MEQ PO PRN (22:32)
[2021-11-01] MEDS ORDERED: KLOR-CON PO PRN (22:32)
[2021-11-02] MEDS ORDERED: XOPENEX 1.25 MG/3 ML NEBULE NEB SCH
[2021-11-02 00:43] LABS: BILIRUBIN,URINE NEGATIVE (NEGATIVE); BLOOD/HEMOGLOBIN,URINE 3+ (NEGATIVE); GLUCOSE, URINE NEGATIVE (NEGATIVE); KETONES,URINE NEGATIVE (NEGATIVE); LEUKOCYTE ESTERASE ,URINE 1+ (NEGATIVE); NITRITES,URINE POSITIVE (NEGATIVE); PROTEIN,URINE 3+ (NEGATIVE); UROBILINOGEN,URINE 1+ (NORMAL)
[2021-11-02 00:53] LABS: APPEARANCE,URINE SLIGHTLY HAZY (CLEAR); BACTERIA,URINE 1+ /HPF (NEGATIVE); COLOR,URINE YELLOW (YELLOW); SQUAMOUS EPITHELIAL CELL,UR RARE /HPF (NEGATIVE)
[2021-11-02] MEDS: NORCO 5/325 MG TAB PO PRN ×5 (02:10→20:10)
[2021-11-02 02:23] LABS: BASOPHILS % (AUTO) 0.4 % (0.2-1.0); EOSINOPHILS # (AUTO) 0.1 x10^3/uL (0.0-0.2); EOSINOPHILS % (AUTO) 1.2 % (0.9-2.9); HEMATOCRIT 30.2 % (42.0-54.0); HEMOGLOBIN 10.2 g/dL (13.5-18.0); LYMPHOCYTES # (AUTO) 1.1 X10^3/uL (1.3-2.9); LYMPHOCYTES % (AUTO) 13.4 % (21.0-51.0); MEAN CORPUSCULAR HEMOGLOBIN 28.7 pg (27.0-34.0); MEAN CORPUSCULAR HGB CONC 33.7 g/dL (33.0-35.0); MEAN CORPUSCULAR VOLUME 85.2 fL (80.0-100.0); MEAN PLATELET VOLUME 8.3 fL (7.4-11.0); MONOCYTES # (AUTO) 0.7 x10^3/uL (0.3-0.8); MONOCYTES % (AUTO) 8.7 % (0.0-13.0); NEUTROPHILS # (AUTO) 6.5 x10^3/uL (2.2-4.8); NEUTROPHILS % (AUTO) 76.3 % (42.0-75.0); RED BLOOD COUNT 3.55 X10^6/uL (4.7-6.0); RED CELL DISTRIBUTION WIDTH 18.6 % (11.6-16.5); WHITE BLOOD COUNT 8.4 X10^3/uL (3.6-10.0)
[2021-11-02 02:26] LABS: ALANINE AMINOTRANSFERASE 48 Units/L (12-78); ALBUMIN 2.7 g/dL (3.4-5.0); ALKALINE PHOSPHATASE 80 Units/L (46-116); ASPARTATE AMINO TRANSFERASE 109 Units/L (15-37); BLOOD UREA NITROGEN 19 mg/dL (7-18); CALCIUM 8.1 mg/dL (8.5-10.1); CARBON DIOXIDE 25.6 mmol/L (21-32); CHLORIDE 107 mmol/L (98-107); COR CA(FOR HYPOALB) 9.1 mg/dL (8.5-10.1); SODIUM 140 mmol/L (136-145); eGFR NON BLACK RACES > 60 (>60)
[2021-11-02] MEDS: NS 1,000 ML IV 1,000 ML IV SCH (03:10)
[2021-11-02] MEDS: ZOSYN VIAL 3.375 GRAMS 3.375 G in NS 100 ML IV 100 ML IV SCH ×3 (05:38→21:35)
[2021-11-02] MEDS ORDERED: ASPIRIN EC 81 MG PO SCH (09:00)
[2021-11-02] MEDS ORDERED: XOPENEX 1.25 MG/3 ML NEBULE NEB PRN (09:00)
[2021-11-02] MEDS: PROTONIX INJ 40 MG VIAL IVP SCH (10:27)
[2021-11-02] MEDS: CORDARONE TAB 200 MG PO SCH (10:27)
[2021-11-02] MEDS: ELIQUIS PO SCH ×2 (10:27→21:38)
[2021-11-02] MEDS: LOPRESSOR TAB 25 MG PO SCH ×2 (10:27→21:40)
[2021-11-02] MEDS: FLONASE NASAL SPRAY ENOSTRIL SCH ×2 (10:28→21:40)
[2021-11-02] MEDS: ECOTRIN TAB 325 MG PO SCH (11:45)
[2021-11-02] MEDS: PLAVIX PO SCH (11:47)
[2021-11-02] MEDS: SOLU-Medrol 40 MG VIAL IVP SCH ×3 (11:48→21:32)
[2021-11-02] MEDS: COLACE CAP 100 MG PO SCH (21:36)
[2021-11-02] MEDS: MILK OF MAGNESIA PO SCH (21:36)
[2021-11-02] MEDS: LIPITOR TAB 80 MG PO SCH (21:38)
[2021-11-02] MEDS: FLOMAX PO SCH (21:38)
[2021-11-03] MEDS: NORCO 5/325 MG TAB PO PRN ×4 (00:15→17:15)
[2021-11-03 05:49] LABS: BASOPHILS % (AUTO) 0.1 % (0.2-1.0); HEMATOCRIT 32.7 % (42.0-54.0); HEMOGLOBIN 10.8 g/dL (13.5-18.0); LYMPHOCYTES # (AUTO) 0.4 X10^3/uL (1.3-2.9); LYMPHOCYTES % (AUTO) 2.5 % (21.0-51.0); MEAN CORPUSCULAR HEMOGLOBIN 28.6 pg (27.0-34.0); MEAN CORPUSCULAR HGB CONC 32.9 g/dL (33.0-35.0); MEAN CORPUSCULAR VOLUME 86.9 fL (80.0-100.0); MEAN PLATELET VOLUME 8.5 fL (7.4-11.0); MONOCYTES # (AUTO) 0.3 x10^3/uL (0.3-0.8); MONOCYTES % (AUTO) 1.8 % (0.0-13.0); NEUTROPHILS # (AUTO) 14.7 x10^3/uL (2.2-4.8); NEUTROPHILS % (AUTO) 95.6 % (42.0-75.0); RED BLOOD COUNT 3.77 X10^6/uL (4.7-6.0); RED CELL DISTRIBUTION WIDTH 18.5 % (11.6-16.5); WHITE BLOOD COUNT 15.4 X10^3/uL (3.6-10.0)
[2021-11-03] MEDS: SOLU-Medrol 40 MG VIAL IVP SCH ×3 (05:56→22:13)
[2021-11-03] MEDS: ZOSYN VIAL 3.375 GRAMS 3.375 G in NS 100 ML IV 100 ML IV SCH ×3 (05:56→22:13)
[2021-11-03] MEDS: NS 1,000 ML IV 1,000 ML IV SCH ×2 (06:04→22:12)
[2021-11-03 06:05] LABS: ALANINE AMINOTRANSFERASE 45 Units/L (12-78); ALBUMIN 2.9 g/dL (3.4-5.0); ALKALINE PHOSPHATASE 81 Units/L (46-116); ASPARTATE AMINO TRANSFERASE 90 Units/L (15-37); BLOOD UREA NITROGEN 16 mg/dL (7-18); CALCIUM 8.4 mg/dL (8.5-10.1); CARBON DIOXIDE 24.4 mmol/L (21-32); CHLORIDE 105 mmol/L (98-107); COR CA(FOR HYPOALB) 9.3 mg/dL (8.5-10.1); COR NA(FOR HYPERGLY) 141 mmol/L (136-145); CREATININE 1.04 mg/dL (0.70-1.30); SODIUM 140 mmol/L (136-145); TOTAL PROTEIN 6.7 g/dL (6.4-8.2); eGFR NON BLACK RACES > 60 (>60)
[2021-11-03 06:18] LABS: ANISOCYTOSIS SLIGHT; PLATELET MORPHOLOGY COMMENT NORMAL (NORMAL)
[2021-11-03] MEDS: ECOTRIN TAB 325 MG PO SCH (08:35)
[2021-11-03] MEDS: CORDARONE TAB 200 MG PO SCH (08:36)
[2021-11-03] MEDS: ELIQUIS PO SCH ×2 (08:36→22:16)
[2021-11-03] MEDS: PLAVIX PO SCH (08:36)
[2021-11-03] MEDS: LOPRESSOR TAB 25 MG PO SCH ×2 (08:37→22:17)
[2021-11-03] MEDS: PROTONIX INJ 40 MG VIAL IVP SCH (08:37)
[2021-11-03] MEDS: FLONASE NASAL SPRAY ENOSTRIL SCH ×2 (08:37→22:18)
[2021-11-03] MEDS ORDERED: TORADOL 30 MG VIAL IVP PRN (12:34)
[2021-11-03] MEDS ORDERED: TORADOL 15 MG VIAL ONE (12:48)
[2021-11-03] MEDS: TORADOL 15 MG VIAL IVP PRN ×2 (12:50→20:09)
[2021-11-03] MEDS: COLACE CAP 100 MG PO SCH (22:15)
[2021-11-03] MEDS: FLOMAX PO SCH (22:16)
[2021-11-03] MEDS: LIPITOR TAB 80 MG PO SCH (22:17)
[2021-11-03] MEDS: MILK OF MAGNESIA PO SCH (22:18)
[2021-11-04 05:34] LABS: BASOPHILS % (AUTO) 0.1 % (0.2-1.0); HEMATOCRIT 30.8 % (42.0-54.0); HEMOGLOBIN 10.2 g/dL (13.5-18.0); LYMPHOCYTES # (AUTO) 0.2 X10^3/uL (1.3-2.9); LYMPHOCYTES % (AUTO) 1.2 % (21.0-51.0); MEAN CORPUSCULAR HEMOGLOBIN 28.5 pg (27.0-34.0); MEAN CORPUSCULAR HGB CONC 33.1 g/dL (33.0-35.0); MEAN CORPUSCULAR VOLUME 86.2 fL (80.0-100.0); MEAN PLATELET VOLUME 8.4 fL (7.4-11.0); MONOCYTES # (AUTO) 0.4 x10^3/uL (0.3-0.8); MONOCYTES % (AUTO) 2.1 % (0.0-13.0); NEUTROPHILS # (AUTO) 18.7 x10^3/uL (2.2-4.8); NEUTROPHILS % (AUTO) 96.6 % (42.0-75.0); RED BLOOD COUNT 3.58 X10^6/uL (4.7-6.0); RED CELL DISTRIBUTION WIDTH 19.2 % (11.6-16.5); WHITE BLOOD COUNT 19.4 X10^3/uL (3.6-10.0)
[2021-11-04 05:44] LABS: ALANINE AMINOTRANSFERASE 39 Units/L (12-78); ALBUMIN 2.8 g/dL (3.4-5.0); ALKALINE PHOSPHATASE 75 Units/L (46-116); ASPARTATE AMINO TRANSFERASE 68 Units/L (15-37); BLOOD UREA NITROGEN 22 mg/dL (7-18); CALCIUM 8.5 mg/dL (8.5-10.1); CARBON DIOXIDE 24.9 mmol/L (21-32); CHLORIDE 107 mmol/L (98-107); COR CA(FOR HYPOALB) 9.5 mg/dL (8.5-10.1); COR NA(FOR HYPERGLY) 143 mmol/L (136-145); CREATININE 1.11 mg/dL (0.70-1.30); SODIUM 142 mmol/L (136-145); TOTAL PROTEIN 6.4 g/dL (6.4-8.2); eGFR NON BLACK RACES > 60 (>60)
[2021-11-04] MEDS: SOLU-Medrol 40 MG VIAL IVP SCH ×3 (05:44→21:30)
[2021-11-04] MEDS: ZOSYN VIAL 3.375 GRAMS 3.375 G in NS 100 ML IV 100 ML IV SCH ×4 (05:44→21:30)
[2021-11-04] MEDS: TORADOL 15 MG VIAL IVP PRN ×2 (05:54→17:30)
[2021-11-04 06:28] LABS: ANISOCYTOSIS SLIGHT; PLATELET MORPHOLOGY COMMENT NORMAL (NORMAL)
[2021-11-04] MEDS: PROTONIX INJ 40 MG VIAL IVP SCH (08:53)
[2021-11-04] MEDS: PLAVIX PO SCH (08:54)
[2021-11-04] MEDS: CORDARONE TAB 200 MG PO SCH (08:54)
[2021-11-04] MEDS: ELIQUIS PO SCH ×2 (08:54→20:48)
[2021-11-04] MEDS: ECOTRIN TAB 325 MG PO SCH (08:54)
[2021-11-04] MEDS: LOPRESSOR TAB 25 MG PO SCH ×2 (08:54→20:48)
[2021-11-04] MEDS: FLONASE NASAL SPRAY ENOSTRIL SCH ×2 (08:55→20:51)
[2021-11-04] MEDS: NORCO 5/325 MG TAB PO PRN ×2 (08:57→20:49)
[2021-11-04] MEDS ORDERED: XOPENEX 1.25 MG/3 ML NEBULE NEB SCH (17:00)
[2021-11-04] MEDS: NICOTINE PATCH TD SCH (17:30)
[2021-11-04] MEDS: NS 1,000 ML IV 1,000 ML IV SCH ×3 (17:30→23:52)
[2021-11-04] MEDS: XOPENEX 1.25 MG/3 ML NEBULE NEB PRN ×2 (18:00→20:37)
[2021-11-04] MEDS: COLACE CAP 100 MG PO SCH (20:47)
[2021-11-04] MEDS: FLOMAX PO SCH (20:48)
[2021-11-04] MEDS: LIPITOR TAB 80 MG PO SCH (20:49)
[2021-11-04] MEDS: VISTARIL PO PRN (20:50)
--- NOTE | 2021-11-04 21:18 | DR.UPDATE ---
H&P Update History and Physical Update: History and Physical reviewed and patient examined. Changes noted: NO Yes with the following: Prescription drug monitoring program results: PDMP reviewed and no concerns identified H&P Reviewed: Yes Patient was examined?: Yes
--- NOTE | 2021-11-04 21:25 | RAD ---
HISTORYShortness of breathSTUDYCHEST, 1 VIEWCOMPARISONApril 2021TECHNIQUEChest radiographic imaging, AP portable projection, 1 imageFINDINGSMild cardiomegaly.Status post median sternotomy/CABG.Pacemaker in place.Mild diffuse increased interstitial markings.No focal airspace disease.Small bilateral pleural effusions.No pneumothorax.No acute osseous abnormality.IMPRESSIONFindings concerning for CHF.Electronically signed by: Rian Kramer (Nov 04, 2021 21:24:12)
[2021-11-04] MEDS: MILK OF MAGNESIA PO SCH (21:30)
--- NOTE | 2021-11-05 00:02 | PCM.PROG ---
Progress Note - Progress Note for Day of Date of Exam: 11/02/21 - Subjective Subjective: WAS ADMITTED FOR RIGHT LOWER EXTREMITY CELLULITIS. PMH OF HTN, COPD, HYPERLIPIDEMIA. TODAY, HE IS ALERT AND ORIENTED LYING IN BED ON MORNING ROUNDS. HE CONTINUES WITH COMPLAINTS OF RIGHT FOOT PAIN AND THROBBING TODAY. STAFF REPORTS THAT HE IS UNABLE TO AMBULATE WITHOUT ASSISTANCE DUE TO SEVERE PAIN. HE ALSO COMPLAINS OF LOW BACK PAIN. ON EXAMINATION, HEART IS REGULAR IN RATE AND RHYTHM. BILATERAL LUNGS NOTED WITH SCATTERED WHEEZING. ABDOMEN IS ROUND, SOFT, AND NON-TENDER WITH NORMAL BOWEL SOUNDS NOTED IN ALL QUADRANTS. RLE NOTED WITH ERYTHEMA AND 2+ PITTING EDEMA. DECREASED ROM NOTED TO RLE. THERE ARE SUTURES AND A SMALL DRESSING NOTED GO GROIN, POST CATHETERIZATION WITH PREVIOUS HOSPITALIZATION. SCATTERED BRUISING NOTED. HIS VITALS THIS MORNING ARE: 97.3-60-22-99%-139/63. LABS WERE OBTAINED. RBC 3.55, HGB 10.2, HCT 30.2, PLT COUNT 130, SODIUM 140, POTASSIUM 3.7, BUN 19, CREATININE 1.10, GLUCOSE 109, CALCIUM 8.1, AST 109, TOTAL PROTEIN 6.0, ALBUMIN 2.7. URINALYSIS OBTAINED AND REVEALED: WBC 5-10, RBC 5-10, BACTERIA 1+, LEUKOCYTES 1+, NITRITES POSITIVE. BLOOD AND URINE CULTURES ARE PENDING. LOWER EXTREMITY CTA WAS OBTAINED AND REVEALED: Severe atherosclerotic changes of the abdominal aorta with a graft at the aortic bifurcation with occlusion of the common iliac graft without evidence of enhancement of the right superficial femoral artery with a tiny reconstituted popliteal artery without evidence of significant enhancement in the calf and the right foot. In the left, there is patency of the left common iliac graft with severe disease of the superficial femoral artery and reconstitution of the popliteal artery with a tibioperoneal trunk with 3 vessels in the delayed images and single vessel in the plantar region in the delayed images. CHEST XRAY OBTAINED ON ADMISSION REVEALED: Postsurgical chest status post sternotomy CABG surgery pacemaker in place with cardiomegaly small pleural effusions in the right mild central vascular congestion but no overt findings of CHF. Pleural effusions and vascular congestion are improved when compared to July 09, 2021. HE IS CURRENTLY RECEIVING NORMAL SALINE AT 75 ML/HR, ZOSYN 3.375G IV TID, PROTONIX 40MG IV DAILY. THE POTASSIUM AND MAGNESIUM PROTOCOLS, XOPENEX NEBS QID PRN, DUONEBS TID, SOLU-MEDROL 40MG IV Q8H, TORADOL 30MG IV Q6H PRN, ECOTRIN 325MG PO DAILY, PLAVIX 75MG PO DAILY, LIPITOR 80MG PO HS, METOPROLOL 25MG PO BID, NORCO 5/325MG PO Q4H PRN, ELIQUIS 2.5MG PO BID, FLOMAX 0.4MG PO HS, COLACE 200MG PO HS. WE WILL CONTINUE CURRENT PLAN OF CARE TODAY. OTHERWISE, WE PLAN TO FOLLOW-UP WITH AM LABS AND CONTINUE TO MONITOR. TIME SPENT ON CLINICAL ASSESSMENT, REVIEWING LABS AND IMAGING, DECISION MAKING, AND DOCUMENTATION GREATER THAN 45 MINUTES. - Past Medical Family Social History Past Med/Fam/Surg Hx: No changes since H&P Allergies: Allergies No Known Drug Allergies Allergy (Verified 11/01/21 15:27) - Review of Systems ROS: No change since H&P - Vital Signs and I&O's Vital Signs: Temperature 98 F Pulse Rate [Bilateral Radial] 90 Pulse Rate 88 Respiratory Rate 18 Blood Pressure [Right Arm] 86/57 Blood Pressure [Left Arm] 131/66 O2 Sat by Pulse Oximetry 98 Intake and Output: Intake & Output 11/02/21 11/03/21 11/04/21 11/05/21 11:59 11:59 11:59 11:59 Intake Total 2188 / 2188 1960 / 1960 3045 / 3045 595 / 595 Output Total 925 / 925 850 / 850 600 / 600 Balance 1263 / 1263 1110 / 1110 2445 / 2445 595 / 595 - Physical Exam Oriented: Normal Eyes: Normal Ear: Normal Nose: Normal Throat: Normal Respiratory: Generalized, Wheezes Cardiovascular: Normal : Normal Auscultation: Bowel Sounds: Normal Palpation: Normal Tenderness: Normal Skin: Red, Tender, Hot Musculoskeletal: Right, Foot, Swelling, Tender Psychiatric: Normal Mood Description: Calm Affect: Normal Speech Pattern: Clear, Appropriate - Laboratory and Diagnostics Result Diagrams: 11/04/21 04:39 11/04/21 04:39 Labs: 11/02/21 00:30 Urine,Clean Catch Urine Culture - Final 11/01/21 13:12 Blood Blood Culture - Preliminary 11/01/21 13:07 Blood Blood Culture - Preliminary Laboratory WBC 19.4 X10^3/uL (3.6-10.0) H 11/04/21 04:39 RBC 3.58 X10^6/uL (4.7-6.0) L 11/04/21 04:39 Hgb 10.2 g/dL (13.5-18.0) L 11/04/21 04:39 Hct 30.8 % (42.0-54.0) L 11/04/21 04:39 MCV 86.2 fL (80.0-100.0) 11/04/21 04:39 MCH 28.5 pg (27.0-34.0) 11/04/21 04:39 MCHC 33.1 g/dL (33.0-35.0) 11/04/21 04:39 RDW 19.2 % (11.6-16.5) H 11/04/21 04:39 Plt Count 141 X10^3/uL (150.0-450.0) L 11/04/21 04:39 Plt Count Comment Decreased (ADEQUATE) 11/04/21 04:39 MPV 8.4 fL (7.4-11.0) 11/04/21 04:39 Neut % (Auto) 96.6 % (42.0-75.0) H 11/04/21 04:39 Lymph % (Auto) 1.2 % (21.0-51.0) L 11/04/21 04:39 [place] % (Auto) 2.1 % (0.0-13.0) 11/04/21 04:39 Eos % (Auto) 0.0 % (0.9-2.9) L 11/04/21 04:39 Baso % (Auto) 0.1 % (0.2-1.0) L 11/04/21 04:39 Neut # (Auto) 18.7 x10^3/uL (2.2-4.8) H 11/04/21 04:39 Lymph # (Auto) 0.2 X10^3/uL (1.3-2.9) L 11/04/21 04:39 [place] # (Auto) 0.4 x10^3/uL (0.3-0.8) 11/04/21 04:39 Eos # (Auto) 0.0 x10^3/uL (0.0-0.2) 11/04/21 04:39 Baso # (Auto) 0.0 X10^3/uL (0.0-0.1) 11/04/21 04:39 Absolute Nucleated RBC 0.0 /100WBC 11/04/21 04:39 Total Counted 100 11/04/21 04:39 Neutrophils % (Manual) 98 % (39-76) H 11/04/21 04:39 Lymphocytes % (Manual) 1 % (13-43) L 11/04/21 04:39 Monocytes % (Manual) 1 % (4-9) L 11/04/21 04:39 Plt Morphology Comment Normal (NORMAL) 11/04/21 04:39 RBC Morphology Abnormal (NORMAL) 11/04/21 04:39 Anisocytosis Slight A 11/04/21 04:39 ESR 42 MM/HOUR (0-15) H 11/01/21 13:07 PT 14.7 SECONDS (11.8-14.3) 11/01/21 13:07 INR Target Range - 11/01/21 13:07 INR 1.19 (0.8-1.3) 11/01/21 13:07 APTT 28.5 SECONDS (22.9-36.5) 11/01/21 13:07 PTT Comment - 11/01/21 13:07 Sodium 142 mmol/L (136-145) 11/04/21 04:39 Corrected Sodium 143 mmol/L (136-145) 11/04/21 04:39 Potassium 4.3 mmol/L (3.5-5.1) 11/04/21 04:39 Chloride 107 mmol/L (98-107) 11/04/21 04:39 Carbon Dioxide 24.9 mmol/L (21-32) 11/04/21 04:39 BUN 22 mg/dL (7-18) H 11/04/21 04:39 Creatinine 1.11 mg/dL (0.70-1.30) 11/04/21 04:39 Est GFR (MDRD) Af Amer > 60 (>60) 11/04/21 04:39 Est GFR (MDRD) Non-Af > 60 (>60) 11/04/21 04:39 Glucose 128 mg/dL (65-99) H 11/04/21 04:39 Lactic Acid 1.5 mmol/L (0.4-2.0) 11/01/21 13:07 Calcium 8.5 mg/dL (8.5-10.1) 11/04/21 04:39 Corrected Calcium 9.5 mg/dL (8.5-10.1) 11/04/21 04:39 Magnesium 2.3 mg/dL (1.7-2.9) 11/01/21 13:07 Total Bilirubin 0.40 mg/dL (0.2-1.0) 11/04/21 04:39 AST 68 Units/L (15-37) H 11/04/21 04:39 ALT 39 Units/L (12-78) 11/04/21 04:39 Alkaline Phosphatase 75 Units/L (46-116) 11/04/21 04:39 C-Reactive Protein 1.80 mg/L (0-3.0) 11/04/21 04:39 Total Protein 6.4 g/dL (6.4-8.2) 11/04/21 04:39 Albumin 2.8 g/dL (3.4-5.0) L 11/04/21 04:39 Globulin 3.6 g/dL (2.5-4.5) 11/04/21 04:39 Albumin/Globulin Ratio 0.8 Ratio (1.1-2.1) L 11/04/21 04:39 Specimen Type Clean catch urine 11/02/21 00:30 Urine Color Yellow (YELLOW) 11/02/21 00:30 Urine Appearance Slightly hazy (CLEAR) 11/02/21 00:30 Urine pH 7.0 (5.0 - 8.0) 11/02/21 00:30 Ur Specific [place] 1.010 (1.000-1.030) 11/02/21 00:30 Urine Protein 3+ (NEGATIVE) 11/02/21 00:30 Urine Glucose (UA) Negative (NEGATIVE) 11/02/21 00:30 Urine Ketones Negative (NEGATIVE) 11/02/21 00:30 Urine Blood 3+ (NEGATIVE) 11/02/21 00:30 Urine Nitrite Positive (NEGATIVE) 11/02/21 00:30 Urine Bilirubin Negative (NEGATIVE) 11/02/21 00:30 Urine Urobilinogen 1+ (NORMAL) 11/02/21 00:30 Ur Leukocyte Esterase 1+ (NEGATIVE) 11/02/21 00:30 Urine RBC 5-10 /HPF (0-3) A 11/02/21 00:30 Urine WBC 5-10 /HPF (0-5) A 11/02/21 00:30 Ur Squamous Epith Cells Rare /HPF (NEGATIVE) 11/02/21 00:30 Amorphous Sediment 1+ /HPF (NEGATIVE) 11/02/21 00:30 Urine Bacteria 1+ /HPF (NEGATIVE) 11/02/21 00:30 Ur Culture Indicated? Yes/culture set up 11/02/21 00:30 Urine Opiates Screen Positive (NEG=<300) 11/04/21 17:25 Urine Methadone Screen Negative (NEG=<300) 11/04/21 17:25 Ur Barbiturates Screen Negative (NEG=<200) 11/04/21 17:25 Ur Phencyclidine Scrn Negative (NEG=<25) 11/04/21 17:25 Ur Amphetamines Screen Negative (NEG=<1000) 11/04/21 17:25 U Benzodiazepines Scrn Negative (NEG=<200) 11/04/21 17:25 Urine Cocaine Screen Negative (NEG=<300) 11/04/21 17:25 U Marijuana (THC) Screen Negative (NEG=<50) 11/04/21 17:25 SARS-CoV-2 (PCR) Negative (NEGATIVE) 11/01/21 12:30 - Plan (1) Cellulitis of right lower extremity Status: Acute Plan: NORMAL SALINE AT 75 ML/HR, ZOSYN 3.375G IV TID, PROTONIX 40MG IV DAILY. THE POTASSIUM AND MAGNESIUM PROTOCOLS, XOPENEX NEBS QID PRN, DUONEBS TID, SOLU- MEDROL 40MG IV Q8H, TORADOL 30MG IV Q6H PRN, ECOTRIN 325MG PO DAILY, PLAVIX 75MG PO DAILY, LIPITOR 80MG PO HS, METOPROLOL 25MG PO BID, NORCO 5/325MG PO Q4H PRN, ELIQUIS 2.5MG PO BID, FLOMAX 0.4MG PO HS, COLACE 200MG PO HS. (2) COPD exacerbation Status: Acute (3) Hypertension Status: Chronic Qualifiers: Hypertension type: primary hypertension Qualified Code(s): I10 - Essential (primary) hypertension (4) PVD (peripheral vascular disease) Status: Chronic (5) History of CVA (cerebrovascular accident) Status: Chronic (6) History of hepatitis Status: Chronic
[2021-11-05] MEDS: XOPENEX 1.25 MG/3 ML NEBULE NEB PRN ×3 (02:21→20:12)
[2021-11-05] MEDS: MORPHINE SULFATE INJ 2 MG INJ IVP PRN ×4 (04:10→21:50)
[2021-11-05] MEDS: SOLU-Medrol 40 MG VIAL IVP SCH ×3 (05:00→22:14)
[2021-11-05] MEDS: ZOSYN VIAL 3.375 GRAMS 3.375 G in NS 100 ML IV 100 ML IV SCH ×3 (05:01→22:14)
[2021-11-05 05:02] LABS: BASOPHILS % (AUTO) 0.3 % (0.2-1.0); HEMATOCRIT 29.4 % (42.0-54.0); HEMOGLOBIN 9.5 g/dL (13.5-18.0); LYMPHOCYTES # (AUTO) 0.2 X10^3/uL (1.3-2.9); LYMPHOCYTES % (AUTO) 1.3 % (21.0-51.0); MEAN CORPUSCULAR HEMOGLOBIN 28.2 pg (27.0-34.0); MEAN CORPUSCULAR HGB CONC 32.3 g/dL (33.0-35.0); MEAN CORPUSCULAR VOLUME 87.2 fL (80.0-100.0); MEAN PLATELET VOLUME 8.3 fL (7.4-11.0); MONOCYTES # (AUTO) 0.5 x10^3/uL (0.3-0.8); MONOCYTES % (AUTO) 3.3 % (0.0-13.0); NEUTROPHILS # (AUTO) 13.6 x10^3/uL (2.2-4.8); NEUTROPHILS % (AUTO) 95.1 % (42.0-75.0); RED BLOOD COUNT 3.38 X10^6/uL (4.7-6.0); RED CELL DISTRIBUTION WIDTH 19.3 % (11.6-16.5); WHITE BLOOD COUNT 14.3 X10^3/uL (3.6-10.0)
[2021-11-05 05:12] LABS: ALANINE AMINOTRANSFERASE 44 Units/L (12-78); ALBUMIN 2.9 g/dL (3.4-5.0); ALKALINE PHOSPHATASE 76 Units/L (46-116); ASPARTATE AMINO TRANSFERASE 69 Units/L (15-37); BLOOD UREA NITROGEN 33 mg/dL (7-18); CALCIUM 8.4 mg/dL (8.5-10.1); CARBON DIOXIDE 24.8 mmol/L (21-32); CHLORIDE 108 mmol/L (98-107); COR CA(FOR HYPOALB) 9.3 mg/dL (8.5-10.1); COR NA(FOR HYPERGLY) 144 mmol/L (136-145); CREATININE 1.17 mg/dL (0.70-1.30); SODIUM 142 mmol/L (136-145); TOTAL PROTEIN 6.3 g/dL (6.4-8.2); eGFR NON BLACK RACES > 60 (>60)
[2021-11-05 05:21] LABS: ANISOCYTOSIS SLIGHT; HYPOCHROMASIA SLIGHT; PLATELET MORPHOLOGY COMMENT NORMAL (NORMAL)
--- NOTE | 2021-11-05 06:18 | RAD ---
HISTORYShortness of breathSTUDYChest AP [id number]/2022FINDINGSTher e is a pacemaker present in the left axilla obscuring the lateral portion of the left lung apex. Patient is status post median sternotomy and CABG. The heart remains enlarged. No congestive heart failure is noted. The lungs are hyperinflated but free of acute alveolar infiltrates. Blunting of both costophrenic angles could be fibrosis or small pleural effusions and is unchanged. Bony thorax is unremarkable.IMPRESSIONCardiomegaly without congestive heart failureHyperinflation but without acute infiltratesBlunting of the costophrenic angles which could be due to small pleural effusions or fibrosis, unchangedElectronically signed by: ANDRA CARSON (Nov 05, 2021 06:17:11)
[2021-11-05] MEDS: PLAVIX PO SCH (08:30)
[2021-11-05] MEDS: CORDARONE TAB 200 MG PO SCH (08:30)
[2021-11-05] MEDS: PROTONIX INJ 40 MG VIAL IVP SCH (08:32)
[2021-11-05] MEDS: ELIQUIS PO SCH ×2 (08:33→20:19)
[2021-11-05] MEDS: NICOTINE PATCH TD SCH (08:34)
[2021-11-05] MEDS: ECOTRIN TAB 325 MG PO SCH (08:36)
[2021-11-05] MEDS: FLONASE NASAL SPRAY ENOSTRIL SCH ×2 (08:37→20:43)
[2021-11-05] MEDS: LOPRESSOR TAB 25 MG PO SCH ×2 (08:37→20:20)
[2021-11-05] MEDS: LASIX IVP SCH ×2 (11:00→22:14)
[2021-11-05] MEDS: VISTARIL PO PRN (11:29)
[2021-11-05] MEDS ORDERED: NovoLIN R (or HumuLIN R) SUBCUT PRN (11:56)
[2021-11-05] MEDS ORDERED: NORCO 5/325 MG TAB PO PRN (13:23)
[2021-11-05] MEDS ORDERED: ELIQUIS PO SCH (13:30)
[2021-11-05] MEDS ORDERED: CORDARONE TAB 200 MG PO SCH (14:00)
[2021-11-05] MEDS: NS 1,000 ML IV 1,000 ML IV SCH (17:29)
[2021-11-05] MEDS ORDERED: SNACK - Diabetic Appropriate PO SCH (20:00)
[2021-11-05] MEDS: NORCO 5/325 MG TAB PO PRN (20:15)
[2021-11-05] MEDS: COLACE CAP 100 MG PO SCH ×2 (20:19→20:43)
[2021-11-05] MEDS: LIPITOR TAB 80 MG PO SCH (20:20)
[2021-11-05] MEDS: FLOMAX PO SCH (20:20)
[2021-11-05] MEDS: MILK OF MAGNESIA PO SCH (20:43)
[2021-11-05] MEDS ORDERED: LIPITOR TAB 80 MG PO SCH (21:00)
--- NOTE | 2021-11-05 22:41 | PCM.PROG ---
Progress Note - Progress Note for Day of Date of Exam: 11/03/21 - Subjective Subjective: WAS ADMITTED FOR RIGHT LOWER EXTREMITY CELLULITIS. PMH OF HTN, COPD, HYPERLIPIDEMIA. TODAY, HE IS ALERT AND ORIENTED LYING IN BED ON MORNING ROUNDS. HE CONTINUES WITH COMPLAINTS OF RIGHT FOOT PAIN AND THROBBING TODAY. STAFF REPORTS THAT HE IS UNABLE TO AMBULATE WITHOUT ASSISTANCE DUE TO SEVERE PAIN. HE ALSO COMPLAINS OF LOW BACK PAIN. ON EXAMINATION, HEART IS REGULAR IN RATE AND RHYTHM. BILATERAL LUNGS NOTED WITH SCATTERED WHEEZING. ABDOMEN IS ROUND, SOFT, AND NON-TENDER WITH NORMAL BOWEL SOUNDS NOTED IN ALL QUADRANTS. RLE NOTED WITH ERYTHEMA AND 2+ PITTING EDEMA. DECREASED ROM NOTED TO RLE. THERE ARE SUTURES AND A SMALL DRESSING NOTED TO GROIN, POST CATHETERIZATION WITH PREVIOUS HOSPITALIZATION. SCATTERED BRUISING NOTED. HIS VITALS THIS MORNING ARE: 97.5-60-20-100%-96/64. LABS WERE OBTAINED. WBC 15.4, RBC 3.77, HGB 10.8, HCT 32.7, SODIUM 140, POTASSIUM 4.4, BUN 16, CREATININE 1.04, GLUCOSE 125, CALCIUM 8.4, AST 90, ALBUMIN 2.9. BLOOD AND URINE CULTURES ARE PENDING. HE IS CURRENTLY RECEIVING NORMAL SALINE AT 75 ML/HR, ZOSYN 3.375G IV TID, PROTONIX 40MG IV DAILY, THE POTASSIUM AND MAGNESIUM PROTOCOLS, XOPENEX NEBS QID PRN, DUONEBS TID, SOLU-MEDROL 40MG IV Q8H, TORADOL 30MG IV Q6H PRN, ECOTRIN 325MG PO DAILY, PLAVIX 75MG PO DAILY, LIPITOR 80MG PO HS, METOPROLOL 25MG PO BID, NORCO 5/325MG PO Q4H PRN, ELIQUIS 2.5MG PO BID, FLOMAX 0.4MG PO HS, COLACE 200MG PO HS. WE WILL CONTINUE CURRENT PLAN OF CARE TODAY AND ADD TORADOL 15MG IV Q6H PRN. OTHERWISE, WE PLAN TO FOLLOW-UP WITH AM LABS AND CONTINUE TO MONITOR. TIME SPENT ON CLINICAL ASSESSMENT, REVIEWING LABS AND IMAGING, DECISION MAKING, AND DOCUMENTATION GREATER THAN 45 MINUTES. - Past Medical Family Social History Past Med/Fam/Surg Hx: No changes since H&P Allergies: Allergies No Known Drug Allergies Allergy (Verified 11/05/21 08:23) - Review of Systems ROS: No change since H&P - Vital Signs and I&O's Vital Signs: Temperature 97.8 F Pulse Rate [Bilateral Radial] 80 Pulse Rate 82 Respiratory Rate 18 Blood Pressure [Right Arm] 86/57 Blood Pressure [Left Arm] 106/57 Blood Pressure [Left Arm] 103/58 Blood Pressure [Right Arm] 110/65 Blood Pressure 96/53 O2 Sat by Pulse Oximetry 95 Intake and Output: Intake & Output 11/03/21 11/04/21 11/05/21 11/06/21 11:59 11:59 11:59 11:59 Intake Total 1960 / 1959 3045 / 3045 2236 / 2236 980 / 980 Output Total 850 / 850 600 / 600 1000 / 1000 1600 / 1600 Balance 1110 / 1110 2445 / 2445 1236 / 1236 -620 / -620 - Physical Exam Oriented: Normal Eyes: Normal Ear: Normal Nose: Normal Throat: Normal Respiratory: Generalized, Wheezes Cardiovascular: Normal : Normal Auscultation: Bowel Sounds: Normal Tenderness: Normal Skin: Red, Tender, Hot Musculoskeletal: Right, Foot, Swelling, Tender Psychiatric: Normal Mood Description: Calm Affect: Normal Speech Pattern: Clear, Appropriate - Laboratory and Diagnostics Result Diagrams: 11/05/21 04:40 11/05/21 04:40 Labs: 11/02/21 00:30 Urine,Clean Catch Urine Culture - Final 11/01/21 13:12 Blood Blood Culture - Preliminary 11/01/21 13:07 Blood Blood Culture - Preliminary Laboratory WBC 14.3 X10^3/uL (3.6-10.0) H 11/05/21 04:40 RBC 3.38 X10^6/uL (4.7-6.0) L 11/05/21 04:40 Hgb 9.5 g/dL (13.5-18.0) L 11/05/21 04:40 Hct 29.4 % (42.0-54.0) L 11/05/21 04:40 MCV 87.2 fL (80.0-100.0) 11/05/21 04:40 MCH 28.2 pg (27.0-34.0) 11/05/21 04:40 MCHC 32.3 g/dL (33.0-35.0) L 11/05/21 04:40 RDW 19.3 % (11.6-16.5) H 11/05/21 04:40 Plt Count 141 X10^3/uL (150.0-450.0) L 11/05/21 04:40 Plt Count Comment Decreased (ADEQUATE) 11/05/21 04:40 MPV 8.3 fL (7.4-11.0) 11/05/21 04:40 Neut % (Auto) 95.1 % (42.0-75.0) H 11/05/21 04:40 Lymph % (Auto) 1.3 % (21.0-51.0) L 11/05/21 04:40 [facility] % (Auto) 3.3 % (0.0-13.0) 11/05/21 04:40 Eos % (Auto) 0.0 % (0.9-2.9) L 11/05/21 04:40 Baso % (Auto) 0.3 % (0.2-1.0) 11/05/21 04:40 Neut # (Auto) 13.6 x10^3/uL (2.2-4.8) H 11/05/21 04:40 Lymph # (Auto) 0.2 X10^3/uL (1.3-2.9) L 11/05/21 04:40 [facility] # (Auto) 0.5 x10^3/uL (0.3-0.8) 11/05/21 04:40 Eos # (Auto) 0.0 x10^3/uL (0.0-0.2) 11/05/21 04:40 Baso # (Auto) 0.0 X10^3/uL (0.0-0.1) 11/05/21 04:40 Absolute Nucleated RBC 0.0 /100WBC 11/05/21 04:40 Total Counted 100 11/05/21 04:40 Neutrophils % (Manual) 95 % (39-76) H 11/05/21 04:40 Lymphocytes % (Manual) 2 % (13-43) L 11/05/21 04:40 Monocytes % (Manual) 3 % (4-9) L 11/05/21 04:40 Plt Morphology Comment Normal (NORMAL) 11/05/21 04:40 RBC Morphology Abnormal (NORMAL) 11/05/21 04:40 Hypochromasia Slight A 11/05/21 04:40 Anisocytosis Slight A 11/05/21 04:40 ESR 42 MM/HOUR (0-15) H 11/01/21 13:07 PT 14.7 SECONDS (11.8-14.3) 11/01/21 13:07 INR Target Range - 11/01/21 13:07 INR 1.19 (0.8-1.3) 11/01/21 13:07 APTT 28.5 SECONDS (22.9-36.5) 11/01/21 13:07 PTT Comment - 11/01/21 13:07 Sodium 142 mmol/L (136-145) 11/05/21 04:40 Corrected Sodium 144 mmol/L (136-145) 11/05/21 04:40 Potassium 4.0 mmol/L (3.5-5.1) 11/05/21 04:40 Chloride 108 mmol/L (98-107) H 11/05/21 04:40 Carbon Dioxide 24.8 mmol/L (21-32) 11/05/21 04:40 BUN 33 mg/dL (7-18) H 11/05/21 04:40 Creatinine 1.17 mg/dL (0.70-1.30) 11/05/21 04:40 Est GFR (MDRD) Af Amer > 60 (>60) 11/05/21 04:40 Est GFR (MDRD) Non-Af > 60 (>60) 11/05/21 04:40 Glucose 201 mg/dL (65-99) H 11/05/21 04:40 Lactic Acid 1.5 mmol/L (0.4-2.0) 11/01/21 13:07 Calcium 8.4 mg/dL (8.5-10.1) L 11/05/21 04:40 Corrected Calcium 9.3 mg/dL (8.5-10.1) 11/05/21 04:40 Magnesium 2.3 mg/dL (1.7-2.9) 11/01/21 13:07 Total Bilirubin 0.40 mg/dL (0.2-1.0) 11/05/21 04:40 AST 69 Units/L (15-37) H 11/05/21 04:40 ALT 44 Units/L (12-78) 11/05/21 04:40 Alkaline Phosphatase 76 Units/L (46-116) 11/05/21 04:40 C-Reactive Protein 1.20 mg/L (0-3.0) 11/05/21 04:40 B-Natriuretic Peptide 1590 pg/mL (0-79) H* 11/05/21 04:40 Total Protein 6.3 g/dL (6.4-8.2) L 11/05/21 04:40 Albumin 2.9 g/dL (3.4-5.0) L 11/05/21 04:40 Globulin 3.4 g/dL (2.5-4.5) 11/05/21 04:40 Albumin/Globulin Ratio 0.9 Ratio (1.1-2.1) L 11/05/21 04:40 Specimen Type Clean catch urine 11/02/21 00:30 Urine Color Yellow (YELLOW) 11/02/21 00:30 Urine Appearance Slightly hazy (CLEAR) 11/02/21 00:30 Urine pH 7.0 (5.0 - 8.0) 11/02/21 00:30 Ur Specific [place] 1.010 (1.000-1.030) 11/02/21 00:30 Urine Protein 3+ (NEGATIVE) 11/02/21 00:30 Urine Glucose (UA) Negative (NEGATIVE) 11/02/21 00:30 Urine Ketones Negative (NEGATIVE) 11/02/21 00:30 Urine Blood 3+ (NEGATIVE) 11/02/21 00:30 Urine Nitrite Positive (NEGATIVE) 11/02/21 00:30 Urine Bilirubin Negative (NEGATIVE) 11/02/21 00:30 Urine Urobilinogen 1+ (NORMAL) 11/02/21 00:30 Ur Leukocyte Esterase 1+ (NEGATIVE) 11/02/21 00:30 Urine RBC 5-10 /HPF (0-3) A 11/02/21 00:30 Urine WBC 5-10 /HPF (0-5) A 11/02/21 00:30 Ur Squamous Epith Cells Rare /HPF (NEGATIVE) 11/02/21 00:30 Amorphous Sediment 1+ /HPF (NEGATIVE) 11/02/21 00:30 Urine Bacteria 1+ /HPF (NEGATIVE) 11/02/21 00:30 Ur Culture Indicated? Yes/culture set up 11/02/21 00:30 Urine Opiates Screen Positive (NEG=<300) 11/04/21 17:25 Urine Methadone Screen Negative (NEG=<300) 11/04/21 17:25 Ur Barbiturates Screen Negative (NEG=<200) 11/04/21 17:25 Ur Phencyclidine Scrn Negative (NEG=<25) 11/04/21 17:25 Ur Amphetamines Screen Negative (NEG=<1000) 11/04/21 17:25 U Benzodiazepines Scrn Negative (NEG=<200) 11/04/21 17:25 Urine Cocaine Screen Negative (NEG=<300) 11/04/21 17:25 U Marijuana (THC) Screen Negative (NEG=<50) 11/04/21 17:25 SARS-CoV-2 (PCR) Negative (NEGATIVE) 11/01/21 12:30 - Plan (1) Cellulitis of right lower extremity Status: Acute Plan: NORMAL SALINE AT 75 ML/HR, ZOSYN 3.375G IV TID, PROTONIX 40MG IV DAILY, TORADOL 15MG IV Q6H PRN, THE POTASSIUM AND MAGNESIUM PROTOCOLS, XOPENEX NEBS QID PRN, DUONEBS TID, SOLU-MEDROL 40MG IV Q8H, TORADOL 30MG IV Q6H PRN, ECOTRIN 325MG PO DAILY, PLAVIX 75MG PO DAILY, LIPITOR 80MG PO HS, METOPROLOL 25MG PO BID, NORCO 5/325MG PO Q4H PRN, ELIQUIS 2.5MG PO BID, FLOMAX 0.4MG PO HS, COLACE 200MG PO HS. (2) COPD exacerbation Status: Acute (3) Hypertension Status: Chronic Qualifiers: Hypertension type: primary hypertension Qualified Code(s): I10 - Essential (primary) hypertension (4) PVD (peripheral vascular disease) Status: Chronic (5) History of CVA (cerebrovascular accident) Status: Chronic (6) History of hepatitis Status: Chronic
--- NOTE | 2021-11-05 22:52 | PCM.PROG ---
Progress Note - Progress Note for Day of Date of Exam: 11/04/21 - Subjective Subjective: WAS ADMITTED FOR RIGHT LOWER EXTREMITY CELLULITIS. PMH OF HTN, COPD, HYPERLIPIDEMIA. TODAY, HE IS ALERT AND ORIENTED SITTING UP IN BED ON MORNING ROUNDS. HE CONTINUES WITH COMPLAINTS OF RIGHT FOOT PAIN AND THROBBING TODAY. HE ALSO REPORTS SHORTNESS OF BREATH AND FEELING ANXIOUS. STAFF REPORTS THAT HE IS UNABLE TO AMBULATE WITHOUT ASSISTANCE DUE TO SEVERE PAIN. HE ALSO COMPLAINS OF LOW BACK PAIN. ON EXAMINATION, HEART IS REGULAR IN RATE AND RHYTHM. BILATERAL LUNGS NOTED WITH SCATTERED WHEEZING. ABDOMEN IS ROUND, SOFT, AND NON- TENDER WITH NORMAL BOWEL SOUNDS NOTED IN ALL QUADRANTS. RLE NOTED WITH ERYTHEMA AND 1+ PITTING EDEMA. DECREASED ROM NOTED TO RLE. THERE ARE SUTURES AND A SMALL DRESSING NOTED TO GROIN, POST CATHETERIZATION WITH PREVIOUS HOSPITALIZATION. SCATTERED BRUISING NOTED. HIS VITALS THIS MORNING ARE: 97.9-89-22-96%-101/70. LABS WERE OBTAINED. WBC 19.4, RBC 3.58, HGB 10.2, HCT 30.8, PLT COUNT 141, SODIUM 142, POTASSIUM 4.3, BUN 22, CREATININE 1.11, GLUCOSE 128, AST 68, ALBUMIN 2.8. BLOOD AND URINE CULTURES ARE PENDING. WE OBTAINED A CHEST XRAY. IT REVEALED: Mild cardiomegaly. Status post median sternotomy/CABG. Pacemaker in place. Mild diffuse increased interstitial markings. No focal airspace disease. Small bilateral pleural effusions. No pneumothorax. No acute osseous abnormality. HE IS CURRENTLY RECEIVING NORMAL SALINE AT 75 ML/HR, ZOSYN 3.375G IV TID, PROTONIX 40MG IV DAILY, TORADOL 15MG IV Q6H PRN, THE POTASSIUM AND MAGNESIUM PROTOCOLS, XOPENEX NEBS QID PRN, DUONEBS TID, SOLU-MEDROL 40MG IV Q8H, TORADOL 30MG IV Q6H PRN, ECOTRIN 325MG PO DAILY, PLAVIX 75MG PO DAILY, LIPITOR 80MG PO HS, METOPROLOL 25MG PO BID, NORCO 5/325MG PO Q4H PRN, ELIQUIS 2.5MG PO BID, FLOMAX 0.4MG PO HS, COLACE 200MG PO HS. WE WILL DECREASE SOLU-MEDROL TO 20MG IV Q8H. WE WILL ADD A NICOTINE PATCH, MORPHINE 2MG IV Q4H PRN PAIN, AND VISTARIL 25MG PO Q8H PRN AGITATION. OTHERWISE, WE PLAN TO FOLLOW-UP WITH AM LABS AND CONTINUE TO MONITOR. TIME SPENT ON CLINICAL ASSESSMENT, REVIEWING LABS AND IMAGING, DECISION MAKING, AND DOCUMENTATION GREATER THAN 45 MINUTES. - Past Medical Family Social History Past Med/Fam/Surg Hx: No changes since H&P Allergies: Allergies No Known Drug Allergies Allergy (Verified 11/05/21 08:23) - Review of Systems ROS: No change since H&P - Vital Signs and I&O's Vital Signs: Temperature 97.8 F Pulse Rate [Bilateral Radial] 80 Pulse Rate 82 Respiratory Rate 18 Blood Pressure [Right Arm] 86/57 Blood Pressure [Left Arm] 106/57 Blood Pressure [Left Arm] 103/58 Blood Pressure [Right Arm] 110/65 Blood Pressure 96/53 O2 Sat by Pulse Oximetry 95 Intake and Output: Intake & Output 11/03/21 11/04/21 11/05/21 11/06/21 11:59 11:59 11:59 11:59 Intake Total 1960 / 1960 3045 / 3045 2236 / 2236 980 / 980 Output Total 850 / 850 600 / 600 1000 / 1000 1600 / 1600 Balance 1110 / 1110 2445 / 2445 1236 / 1236 -620 / -620 - Physical Exam Oriented: Normal Eyes: Normal Ear: Normal Nose: Normal Throat: Normal Respiratory: Generalized, Wheezes Cardiovascular: Edema (RLE 2+ PITTING EDEMA ) : Normal Auscultation: Bowel Sounds: Normal Palpation: Normal Tenderness: Normal Skin: Red, Tender, Hot Musculoskeletal: Right, Foot, Swelling, Tender Psychiatric: Normal Mood Description: Calm Affect: Normal Speech Pattern: Clear, Appropriate - Laboratory and Diagnostics Result Diagrams: 11/05/21 04:40 11/05/21 04:40 Labs: 11/02/21 00:30 Urine,Clean Catch Urine Culture - Final 11/01/21 13:12 Blood Blood Culture - Preliminary 11/01/21 13:07 Blood Blood Culture - Preliminary Laboratory WBC 14.3 X10^3/uL (3.6-10.0) H 11/05/21 04:40 RBC 3.38 X10^6/uL (4.7-6.0) L 11/05/21 04:40 Hgb 9.5 g/dL (13.5-18.0) L 11/05/21 04:40 Hct 29.4 % (42.0-54.0) L 11/05/21 04:40 MCV 87.2 fL (80.0-100.0) 11/05/21 04:40 MCH 28.2 pg (27.0-34.0) 11/05/21 04:40 MCHC 32.3 g/dL (33.0-35.0) L 11/05/21 04:40 RDW 19.3 % (11.6-16.5) H 11/05/21 04:40 Plt Count 141 X10^3/uL (150.0-450.0) L 11/05/21 04:40 Plt Count Comment Decreased (ADEQUATE) 11/05/21 04:40 MPV 8.3 fL (7.4-11.0) 11/05/21 04:40 Neut % (Auto) 95.1 % (42.0-75.0) H 11/05/21 04:40 Lymph % (Auto) 1.3 % (21.0-51.0) L 11/05/21 04:40 [place] % (Auto) 3.3 % (0.0-13.0) 11/05/21 04:40 Eos % (Auto) 0.0 % (0.9-2.9) L 11/05/21 04:40 Baso % (Auto) 0.3 % (0.2-1.0) 11/05/21 04:40 Neut # (Auto) 13.6 x10^3/uL (2.2-4.8) H 11/05/21 04:40 Lymph # (Auto) 0.2 X10^3/uL (1.3-2.9) L 11/05/21 04:40 [place] # (Auto) 0.5 x10^3/uL (0.3-0.8) 11/05/21 04:40 Eos # (Auto) 0.0 x10^3/uL (0.0-0.2) 11/05/21 04:40 Baso # (Auto) 0.0 X10^3/uL (0.0-0.1) 11/05/21 04:40 Absolute Nucleated RBC 0.0 /100WBC 04/12/22 04:40 Total Counted 100 11/05/21 04:40 Neutrophils % (Manual) 95 % (39-76) H 11/05/21 04:40 Lymphocytes % (Manual) 2 % (13-43) L 11/05/21 04:40 Monocytes % (Manual) 3 % (4-9) L 11/05/21 04:40 Plt Morphology Comment Normal (NORMAL) 11/05/21 04:40 RBC Morphology Abnormal (NORMAL) 11/05/21 04:40 Hypochromasia Slight A 11/05/21 04:40 Anisocytosis Slight A 11/05/21 04:40 ESR 42 MM/HOUR (0-15) H 11/01/21 13:07 PT 14.7 SECONDS (11.8-14.3) 11/01/21 13:07 INR Target Range - 11/01/21 13:07 INR 1.19 (0.8-1.3) 11/01/21 13:07 APTT 28.5 SECONDS (22.9-36.5) 11/01/21 13:07 PTT Comment - 11/01/21 13:07 Sodium 142 mmol/L (136-145) 11/05/21 04:40 Corrected Sodium 144 mmol/L (136-145) 11/05/21 04:40 Potassium 4.0 mmol/L (3.5-5.1) 11/05/21 04:40 Chloride 108 mmol/L (98-107) H 11/05/21 04:40 Carbon Dioxide 24.8 mmol/L (21-32) 11/05/21 04:40 BUN 33 mg/dL (7-18) H 11/05/21 04:40 Creatinine 1.17 mg/dL (0.70-1.30) 11/05/21 04:40 Est GFR (MDRD) Af Amer > 60 (>60) 11/05/21 04:40 Est GFR (MDRD) Non-Af > 60 (>60) 11/05/21 04:40 Glucose 201 mg/dL (65-99) H 11/05/21 04:40 Lactic Acid 1.5 mmol/L (0.4-2.0) 11/01/21 13:07 Calcium 8.4 mg/dL (8.5-10.1) L 11/05/21 04:40 Corrected Calcium 9.3 mg/dL (8.5-10.1) 11/05/21 04:40 Magnesium 2.3 mg/dL (1.7-2.9) 11/01/21 13:07 Total Bilirubin 0.40 mg/dL (0.2-1.0) 11/05/21 04:40 AST 69 Units/L (15-37) H 11/05/21 04:40 ALT 44 Units/L (12-78) 11/05/21 04:40 Alkaline Phosphatase 76 Units/L (46-116) 11/05/21 04:40 C-Reactive Protein 1.20 mg/L (0-3.0) 11/05/21 04:40 B-Natriuretic Peptide 1590 pg/mL (0-79) H* 11/05/21 04:40 Total Protein 6.3 g/dL (6.4-8.2) L 11/05/21 04:40 Albumin 2.9 g/dL (3.4-5.0) L 11/05/21 04:40 Globulin 3.4 g/dL (2.5-4.5) 11/05/21 04:40 Albumin/Globulin Ratio 0.9 Ratio (1.1-2.1) L 11/05/21 04:40 Specimen Type Clean catch urine 11/02/21 00:30 Urine Color Yellow (YELLOW) 11/02/21 00:30 Urine Appearance Slightly hazy (CLEAR) 11/02/21 00:30 Urine pH 7.0 (5.0 - 8.0) 11/02/21 00:30 Ur Specific [place] 1.010 (1.000-1.030) 11/02/21 00:30 Urine Protein 3+ (NEGATIVE) 11/02/21 00:30 Urine Glucose (UA) Negative (NEGATIVE) 11/02/21 00:30 Urine Ketones Negative (NEGATIVE) 11/02/21 00:30 Urine Blood 3+ (NEGATIVE) 11/02/21 00:30 Urine Nitrite Positive (NEGATIVE) 11/02/21 00:30 Urine Bilirubin Negative (NEGATIVE) 11/02/21 00:30 Urine Urobilinogen 1+ (NORMAL) 11/02/21 00:30 Ur Leukocyte Esterase 1+ (NEGATIVE) 11/02/21 00:30 Urine RBC 5-10 /HPF (0-3) A 11/02/21 00:30 Urine WBC 5-10 /HPF (0-5) A 11/02/21 00:30 Ur Squamous Epith Cells Rare /HPF (NEGATIVE) 11/02/21 00:30 Amorphous Sediment 1+ /HPF (NEGATIVE) 11/02/21 00:30 Urine Bacteria 1+ /HPF (NEGATIVE) 11/02/21 00:30 Ur Culture Indicated? Yes/culture set up 11/02/21 00:30 Urine Opiates Screen Positive (NEG=<300) 11/04/21 17:25 Urine Methadone Screen Negative (NEG=<300) 11/04/21 17:25 Ur Barbiturates Screen Negative (NEG=<200) 11/04/21 17:25 Ur Phencyclidine Scrn Negative (NEG=<25) 11/04/21 17:25 Ur Amphetamines Screen Negative (NEG=<1000) 11/04/21 17:25 U Benzodiazepines Scrn Negative (NEG=<200) 11/04/21 17:25 Urine Cocaine Screen Negative (NEG=<300) 11/04/21 17:25 U Marijuana (THC) Screen Negative (NEG=<50) 11/04/21 17:25 SARS-CoV-2 (PCR) Negative (NEGATIVE) 11/01/21 12:30 - Plan (1) Cellulitis of right lower extremity Status: Acute Plan: NORMAL SALINE AT 75 ML/HR, ZOSYN 3.375G IV TID, PROTONIX 40MG IV DAILY, TORADOL 15MG IV Q6H PRN, THE POTASSIUM AND MAGNESIUM PROTOCOLS, XOPENEX NEBS QID PRN, DUONEBS TID, SOLU-MEDROL 40MG IV Q8H, TORADOL 30MG IV Q6H PRN, ECOTRIN 325MG PO DAILY, PLAVIX 75MG PO DAILY, LIPITOR 80MG PO HS, METOPROLOL 25MG PO BID, NORCO 5/325MG PO Q4H PRN, ELIQUIS 2.5MG PO BID, FLOMAX 0.4MG PO HS, COLACE 200MG PO HS. (2) COPD exacerbation Status: Acute (3) Hypertension Status: Chronic Qualifiers: Hypertension type: primary hypertension Qualified Code(s): I10 - Essential (primary) hypertension (4) PVD (peripheral vascular disease) Status: Chronic (5) History of CVA (cerebrovascular accident) Status: Chronic (6) History of hepatitis Status: Chronic
[2021-11-06] MEDS: NORCO 5/325 MG TAB PO PRN (00:45)
[2021-11-06] MEDS: NS 1,000 ML IV 1,000 ML IV SCH ×2 (01:27→04:46)
[2021-11-06] MEDS: MORPHINE SULFATE INJ 2 MG INJ IVP PRN ×2 (04:25→08:45)
[2021-11-06] MEDS: ZOSYN VIAL 3.375 GRAMS 3.375 G in NS 100 ML IV 100 ML IV SCH (05:12)
[2021-11-06] MEDS: SOLU-Medrol 40 MG VIAL IVP SCH (05:12)
--- NOTE | 2021-11-06 06:12 | RAD ---
HISTORYShortness of breathSTUDYChest AP [id number]/2022FINDINGSTher e is a pacemaker present in the left axilla. Patient is status post median sternotomy. The heart is enlarged. No congestive heart failure is noted. The mateusz are normal. The lungs are hyperinflated but free of acute infiltrates. Blunting of both costophrenic angles may be due to fibrosis or small pleural effusions. Bony thorax is unremarkable. A vascular stent is identified near the apex of the left hemithorax.IMPRESSIONCardiomegaly without congestive heart failureLungs hyperinflated but free of acute infiltrates. Consistent with COPD in the appropriate clinical settingBlunt costophrenic angles bilaterally which could be due to fibrosis or small effusionsElectronically signed by: ANDRA CARSON (Nov 06, 2021 06:11:30)
[2021-11-06 06:17] LABS: BASOPHILS % (AUTO) 0.1 % (0.2-1.0); HEMATOCRIT 26.7 % (42.0-54.0); HEMOGLOBIN 8.9 g/dL (13.5-18.0); LYMPHOCYTES # (AUTO) 0.2 X10^3/uL (1.3-2.9); LYMPHOCYTES % (AUTO) 1.9 % (21.0-51.0); MEAN CORPUSCULAR HEMOGLOBIN 29.1 pg (27.0-34.0); MEAN CORPUSCULAR HGB CONC 33.4 g/dL (33.0-35.0); MEAN CORPUSCULAR VOLUME 87.1 fL (80.0-100.0); MEAN PLATELET VOLUME 8.2 fL (7.4-11.0); MONOCYTES # (AUTO) 0.3 x10^3/uL (0.3-0.8); MONOCYTES % (AUTO) 3.5 % (0.0-13.0); NEUTROPHILS # (AUTO) 9.1 x10^3/uL (2.2-4.8); NEUTROPHILS % (AUTO) 94.5 % (42.0-75.0); RED BLOOD COUNT 3.07 X10^6/uL (4.7-6.0); RED CELL DISTRIBUTION WIDTH 19.3 % (11.6-16.5); WHITE BLOOD COUNT 9.7 X10^3/uL (3.6-10.0)
[2021-11-06 06:27] LABS: ALANINE AMINOTRANSFERASE 45 Units/L (12-78); ALBUMIN 2.8 g/dL (3.4-5.0); ALKALINE PHOSPHATASE 72 Units/L (46-116); ASPARTATE AMINO TRANSFERASE 55 Units/L (15-37); BLOOD UREA NITROGEN 24 mg/dL (7-18); CALCIUM 8.3 mg/dL (8.5-10.1); CHLORIDE 105 mmol/L (98-107); COR CA(FOR HYPOALB) 9.3 mg/dL (8.5-10.1); COR NA(FOR HYPERGLY) 143 mmol/L (136-145); CREATININE 1.08 mg/dL (0.70-1.30); SODIUM 141 mmol/L (136-145); eGFR NON BLACK RACES > 60 (>60)
[2021-11-06 07:03] LABS: BAND NEUTROPHILS % 1 % (0-10); PLATELET MORPHOLOGY COMMENT NORMAL (NORMAL)
[2021-11-06] MEDS: PROTONIX INJ 40 MG VIAL IVP SCH (08:35)
[2021-11-06] MEDS: LOPRESSOR TAB 25 MG PO SCH (08:37)
[2021-11-06] MEDS: CORDARONE TAB 200 MG PO SCH (08:37)
[2021-11-06] MEDS: ELIQUIS PO SCH (08:38)
[2021-11-06] MEDS: PLAVIX PO SCH (08:39)
[2021-11-06] MEDS: FLONASE NASAL SPRAY ENOSTRIL SCH (08:39)
[2021-11-06] MEDS: ECOTRIN TAB 325 MG PO SCH (08:39)
[2021-11-06] MEDS: NICOTINE PATCH TD SCH (08:40)
[2021-11-06 10:34] VITALS: BP 113/60
--- NOTE | 2021-11-06 11:30 | PCM.PROG ---
Progress Note - Progress Note for Day of Date of Exam: 11/05/21 - Subjective Subjective: WAS ADMITTED FOR RIGHT LOWER EXTREMITY CELLULITIS. PMH OF HTN, COPD, HYPERLIPIDEMIA, PVD, A-FIB, S/P CABG/STENTS. TODAY, HE IS ALERT AND ORIENTED SITTING UP IN BED ON MORNING ROUNDS. HE CONTINUES WITH COMPLAINTS OF RIGHT FOOT PAIN AND SHORTNESS OF BREATH. STAFF REPORTS THAT HE IS UNABLE TO AMBULATE WITHOUT ASSISTANCE DUE TO SEVERE PAIN. ON EXAMINATION, HEART IS REGULAR IN RATE AND RHYTHM. BILATERAL LUNGS NOTED WITH SCATTERED WHEEZING THROUGHOUT. ABDOMEN IS ROUND, SOFT, AND NON-TENDER WITH NORMAL BOWEL SOUNDS NOTED IN ALL QUADRANTS. RLE NOTED WITH ERYTHEMA AND 1+ PITTING EDEMA. DECREASED ROM NOTED TO RLE. THERE ARE SUTURES AND A SMALL DRESSING NOTED TO GROIN, POST CATHETERIZATION WITH PREVIOUS HOSPITALIZATION. SCATTERED BRUISING NOTED. HIS VITALS THIS MORNING ARE: 98.3-82-20-99%-109/76. LABS WERE OBTAINED. WBC 14.3, RBC 3.38, HGB 9.5, HCT 29.4, PLT COUNT 141, SODIUM 142, CHLORIDE 108, BUN 33, GLUCOSE 201, CALCIUM 8.4, AST 69, BNP 1590, TOTAL PROTEIN 6.3, ALBUMIN 2.9. BLOOD AND URINE CULTURES ARE PENDING. WE OBTAINED A CHEST XRAY. IT REVEALED: Cardiomegaly without congestive heart failure. Hyperinflation but without acute infiltrates. Blunting of the costophrenic angles which could be due to small pleural effusions or fibrosis, unchanged. HE IS CURRENTLY RECEIVING NORMAL SALINE AT 75 ML/HR, ZOSYN 3.375G IV TID, PROTONIX 40MG IV DAILY, TORADOL 15MG IV Q6H PRN, THE POTASSIUM AND MAGNESIUM PROTOCOLS, XOPENEX NEBS QID PRN, DUONEBS TID, SOLU-MEDROL 20MG IV Q8H, TORADOL 30MG IV Q6H PRN, ECOTRIN 325MG PO DAILY, PLAVIX 75MG PO DAILY, LIPITOR 80MG PO HS, METOPROLOL 25MG PO BID, NICOTINE PATCH, MORPHINE 2MG IV Q4H PRN PAIN, VISTARIL 25MG PO Q8H PRN AGITATION, NORCO 5/325MG PO Q4H PRN, ELIQUIS 2.5MG PO BID, FLOMAX 0.4MG PO HS, COLACE 200MG PO HS. WE WILL DECREASE IV FLUIDS TO KVO AND ADD LASIX 40MG IV X 2 DOSES. OTHERWISE, WE PLAN TO FOLLOW-UP WITH AM LABS AND CHEST XRAY CONTINUE TO MONITOR. TIME SPENT ON CLINICAL ASSESSMENT, REVIEWING LABS AND IMAGING, DECISION MAKING, AND DOCUMENTATION GREATER THAN 45 MINUTES. - Past Medical Family Social History Past Med/Fam/Surg Hx: No changes since H&P Allergies: Allergies No Known Drug Allergies Allergy (Verified 11/05/21 08:23) - Review of Systems ROS: No change since H&P - Vital Signs and I&O's Vital Signs: Temperature 98 F Pulse Rate [Bilateral Radial] 91 Pulse Rate 84 Respiratory Rate 18 Blood Pressure [Right Arm] 86/57 Blood Pressure [Left Arm] 113/60 Blood Pressure [Left Arm] 103/58 Blood Pressure [Right Arm] 110/65 Blood Pressure 96/53 O2 Sat by Pulse Oximetry 98 Intake and Output: Intake & Output 11/03/21 11/04/21 11/05/21 11/06/21 11:59 11:59 11:59 11:59 Intake Total 1960 / 1960 3045 / 3045 2236 / 2236 3769 / 3769 Output Total 850 / 850 600 / 600 1000 / 1000 4250 / 4250 Balance 1110 / 1110 2445 / 2445 1236 / 1236 -481 / -481 - Physical Exam Oriented: Normal Eyes: Normal Ear: Normal Nose: Normal Throat: Normal Respiratory: Generalized, Wheezes Cardiovascular: Edema (RLE 2+ PITTING EDEMA ) : Normal Auscultation: Bowel Sounds: Normal Palpation: Normal Tenderness: Normal Skin: Red, Tender, Hot Musculoskeletal: Right, Foot, Swelling, Tender Psychiatric: Normal Mood Description: Calm Affect: Normal Speech Pattern: Clear, Appropriate - Laboratory and Diagnostics Result Diagrams: 11/06/21 05:55 11/06/21 05:55 Labs: 11/02/21 00:30 Urine,Clean Catch Urine Culture - Final 11/01/21 13:12 Blood Blood Culture - Preliminary 11/01/21 13:07 Blood Blood Culture - Preliminary Laboratory WBC 9.7 X10^3/uL (3.6-10.0) 11/06/21 05:55 RBC 3.07 X10^6/uL (4.7-6.0) L 11/06/21 05:55 Hgb 8.9 g/dL (13.5-18.0) L 11/06/21 05:55 Hct 26.7 % (42.0-54.0) L 11/06/21 05:55 MCV 87.1 fL (80.0-100.0) 11/06/21 05:55 MCH 29.1 pg (27.0-34.0) 11/06/21 05:55 MCHC 33.4 g/dL (33.0-35.0) 11/06/21 05:55 RDW 19.3 % (11.6-16.5) H 11/06/21 05:55 Plt Count 119 X10^3/uL (150.0-450.0) L 11/06/21 05:55 Plt Count Comment Decreased (ADEQUATE) 11/06/21 05:55 MPV 8.2 fL (7.4-11.0) 11/06/21 05:55 Neut % (Auto) 94.5 % (42.0-75.0) H 11/06/21 05:55 Lymph % (Auto) 1.9 % (21.0-51.0) L 11/06/21 05:55 [place] % (Auto) 3.5 % (0.0-13.0) 11/06/21 05:55 Eos % (Auto) 0.0 % (0.9-2.9) L 11/06/21 05:55 Baso % (Auto) 0.1 % (0.2-1.0) L 11/06/21 05:55 Neut # (Auto) 9.1 x10^3/uL (2.2-4.8) H 11/06/21 05:55 Lymph # (Auto) 0.2 X10^3/uL (1.3-2.9) L 11/06/21 05:55 [place] # (Auto) 0.3 x10^3/uL (0.3-0.8) 11/06/21 05:55 Eos # (Auto) 0.0 x10^3/uL (0.0-0.2) 11/06/21 05:55 Baso # (Auto) 0.0 X10^3/uL (0.0-0.1) 11/06/21 05:55 Absolute Nucleated RBC 0.1 /100WBC 11/06/21 05:55 Total Counted 100 11/06/21 05:55 Neutrophils % (Manual) 97 % (39-76) H 11/06/21 05:55 Band Neutrophils % 1 % (0-10) 11/06/21 05:55 Lymphocytes % (Manual) 2 % (13-43) L 11/06/21 05:55 Monocytes % (Manual) 3 % (4-9) L 11/05/21 04:40 Plt Morphology Comment Normal (NORMAL) 11/06/21 05:55 RBC Morphology Normal (NORMAL) 11/06/21 05:55 Hypochromasia Slight A 11/05/21 04:40 Anisocytosis Slight A 11/05/21 04:40 ESR 42 MM/HOUR (0-15) H 11/01/21 13:07 PT 14.7 SECONDS (11.8-14.3) 11/01/21 13:07 INR Target Range - 11/01/21 13:07 INR 1.19 (0.8-1.3) 11/01/21 13:07 APTT 28.5 SECONDS (22.9-36.5) 11/01/21 13:07 PTT Comment - 11/01/21 13:07 Sodium 141 mmol/L (136-145) 11/06/21 05:55 Corrected Sodium 143 mmol/L (136-145) 11/06/21 05:55 Potassium 4.0 mmol/L (3.5-5.1) 11/06/21 05:55 Chloride 105 mmol/L (98-107) 11/06/21 05:55 Carbon Dioxide 28.0 mmol/L (21-32) 11/06/21 05:55 BUN 24 mg/dL (7-18) H 11/06/21 05:55 Creatinine 1.08 mg/dL (0.70-1.30) 11/06/21 05:55 Est GFR (MDRD) Af Amer > 60 (>60) 11/06/21 05:55 Est GFR (MDRD) Non-Af > 60 (>60) 11/06/21 05:55 Glucose 204 mg/dL (65-99) H 11/06/21 05:55 Lactic Acid 1.5 mmol/L (0.4-2.0) 11/01/21 13:07 Calcium 8.3 mg/dL (8.5-10.1) L 11/06/21 05:55 Corrected Calcium 9.3 mg/dL (8.5-10.1) 11/06/21 05:55 Magnesium 2.3 mg/dL (1.7-2.9) 11/01/21 13:07 Total Bilirubin 0.40 mg/dL (0.2-1.0) 11/06/21 05:55 AST 55 Units/L (15-37) H 11/06/21 05:55 ALT 45 Units/L (12-78) 11/06/21 05:55 Alkaline Phosphatase 72 Units/L (46-116) 11/06/21 05:55 C-Reactive Protein 1.20 mg/L (0-3.0) 11/05/21 04:40 B-Natriuretic Peptide 1050 pg/mL (0-79) H* 11/06/21 05:55 Total Protein 6.0 g/dL (6.4-8.2) L 11/06/21 05:55 Albumin 2.8 g/dL (3.4-5.0) L 11/06/21 05:55 Globulin 3.2 g/dL (2.5-4.5) 11/06/21 05:55 Albumin/Globulin Ratio 0.9 Ratio (1.1-2.1) L 11/06/21 05:55 Specimen Type Clean catch urine 11/02/21 00:30 Urine Color Yellow (YELLOW) 11/02/21 00:30 Urine Appearance Slightly hazy (CLEAR) 11/02/21 00:30 Urine pH 7.0 (5.0 - 8.0) 11/02/21 00:30 Ur Specific [place] 1.010 (1.000-1.030) 11/02/21 00:30 Urine Protein 3+ (NEGATIVE) 11/02/21 00:30 Urine Glucose (UA) Negative (NEGATIVE) 11/02/21 00:30 Urine Ketones Negative (NEGATIVE) 11/02/21 00:30 Urine Blood 3+ (NEGATIVE) 11/02/21 00:30 Urine Nitrite Positive (NEGATIVE) 11/02/21 00:30 Urine Bilirubin Negative (NEGATIVE) 11/02/21 00:30 Urine Urobilinogen 1+ (NORMAL) 11/02/21 00:30 Ur Leukocyte Esterase 1+ (NEGATIVE) 11/02/21 00:30 Urine RBC 5-10 /HPF (0-3) A 11/02/21 00:30 Urine WBC 5-10 /HPF (0-5) A 11/02/21 00:30 Ur Squamous Epith Cells Rare /HPF (NEGATIVE) 11/02/21 00:30 Amorphous Sediment 1+ /HPF (NEGATIVE) 11/02/21 00:30 Urine Bacteria 1+ /HPF (NEGATIVE) 11/02/21 00:30 Ur Culture Indicated? Yes/culture set up 11/02/21 00:30 Urine Opiates Screen Positive (NEG=<300) 11/04/21 17:25 Urine Methadone Screen Negative (NEG=<300) 11/04/21 17:25 Ur Barbiturates Screen Negative (NEG=<200) 11/04/21 17:25 Ur Phencyclidine Scrn Negative (NEG=<25) 11/04/21 17:25 Ur Amphetamines Screen Negative (NEG=<1000) 11/04/21 17:25 U Benzodiazepines Scrn Negative (NEG=<200) 11/04/21 17:25 Urine Cocaine Screen Negative (NEG=<300) 11/04/21 17:25 U Marijuana (THC) Screen Negative (NEG=<50) 11/04/21 17:25 SARS-CoV-2 (PCR) Negative (NEGATIVE) 11/01/21 12:30 - Plan (1) Cellulitis of right lower extremity Status: Acute Plan: NORMAL SALINE AT 30 ML/HR, ZOSYN 3.375G IV TID, PROTONIX 40MG IV DAILY, TORADOL 15MG IV Q6H PRN, THE POTASSIUM AND MAGNESIUM PROTOCOLS, XOPENEX NEBS QID PRN, DUONEBS TID, SOLU-MEDROL 20MG IV Q8H, TORADOL 30MG IV Q6H PRN, ECOTRIN 325MG PO DAILY, PLAVIX 75MG PO DAILY, LIPITOR 80MG PO HS, METOPROLOL 25MG PO B ID, NICOTINE PATCH, MORPHINE 2MG IV Q4H PRN PAIN, VISTARIL 25MG PO Q8H PRN AGITATION, NORCO 5/325MG PO Q4H PRN, ELIQUIS 2.5MG PO BID, FLOMAX 0.4MG PO HS, COLACE 200MG PO HS. LASIX 40MG IV X 2 DOSES (2) COPD exacerbation Status: Acute (3) Hypertension Status: Chronic Qualifiers: Hypertension type: primary hypertension Qualified Code(s): I10 - Essential (primary) hypertension (4) PVD (peripheral vascular disease) Status: Chronic (5) History of CVA (cerebrovascular accident) Status: Chronic (6) History of hepatitis Status: Chronic
== END 2021-11-06 10:20 | disposition left against medical advice (07) | DRG 603 ==
LOC: MED/SURG → MERGE 11-03 09:00 → UNDODISOB 11-03 11:14 → UNDODISIN 11-04 10:10
PROVIDERS: ADMIT Internal Medicine; ATTEND Internal Medicine